=== PATIENT | male | born 1935 | race Caucasian/White ===

== ENCOUNTER 2019-10-25 01:16 | Emergency (ER) | payer MEDICARE ==
[2019-10-25 01:54] LABS: Absolute Neutrophil Ct (ANC) 7.34 (1.4-6.9); BASOPHIL % 0.2 % (0.0-0.4); Basophil (Absolute #) 0.02 (0-0.4); Eosinophil % 1.8 % (0.00-5.0); Eosinophil (Absolute #) 0.16 (0-0.5); Hematocrit 42.3 % (42-50); Hemoglobin 13.7 gm/dl (12.5-18.0); Lymphocytes % 11.1 % (24.0-44.0); Mean Cell Volume 91.2 fl (78-100); Mean Corpuscular Hemoglobin 29.5 pg (26-32); Mean Corpuscular Hgb Concent. 32.4 g/dl (32-36); Mean Platelet Volume 10.6 fl (7.5-11.0); Monocyte (Absolute #) 0.48 (0.0-1.3); Monocytes % 5.3 % (0.0-12.0); Neutrophil % 81.6 % (36.0-66.0); Platelet Count 192 K/mm3 (150-450); Red Blood Count 4.64 M/mm3 (4.1-5.6); Red Cell Distribution Width 15.8 % (11.5-14.0)
--- NOTE | 2019-10-25 01:57 | ERPHSYRPT ---
- History of Present Illness Time Seen by Provider: 10/25/19 01:26 Source: patient, EMS Exam Limitations: no limitations Patient Subjective Stated Complaint: Ambulance called to resident's home R/T unresponsive. EMT found patient's BS to be 29. 1 amp of D5 administered and patient BS increased and patient become alert according to EMT. Upon arrival to ER patient's BS 132. Triage Nursing Assessment: . Physician History: Patient is an 84-year-old male who presents to our ED via EMS for evaluation and treatment of syncope, unresponsiveness and hypoglycemia. EMS reports that patient was unresponsive upon their arrival. Accu-Chek revealed glucose of 29. An amp of D50 was administered. Patient became responsive. He was then given peanut butter and orange juice shortly thereafter. Approximately 30 minutes after D50 administration, patient arrived to our ED and his sugar was 132. Patient admits to a history of hypoglycemia. Patient's administers his insulin. She reports that patient has been eating well all day today. No fever. Patient has no chest pain or shortness of breath. No infections that they are aware of. Patient feels well at this time. Family at bedside. They voiced no other complaints concerns at this time. 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 Allergies/Adverse Reactions: No Known Drug Allergies Allergy (Unverified 10/25/19 04:28) Home Medications: Unobtainable 10/25/19 [History] Hx Tetanus, Diphtheria Vaccination/Date Given: Yes Hx Influenza Vaccination/Date Given: Yes Hx Pneumococcal Vaccination/Date Given: Yes Immunizations Up to Date: Yes - Past Medical History Pertinent Past Medical History: Yes Neurological History: Migraines, Stroke ENT History: No Pertinent History Cardiac History: Hypertension Respiratory History: No Pertinent History Endocrine Medical History: Diabetes Type II, Hypoglycemia Musculoskeletal History: Arthritis, Osteoarthritis GI Medical History: No Pertinent History History: No Pertinent History Psycho-Social History: No Pertinent History Male Reproductive Disorders: No Pertinent History - Past Surgical History Past Surgical History: Yes Neuro Surgical History: No Pertinent History Cardiac: No Pertinent History Respiratory: No Pertinent History Gastrointestinal: No Pertinent History Genitourinary: No Pertinent History Musculoskeletal: No Pertinent History Male Surgical History: No Pertinent History Other Surgical History: Back Surgery, neck surgery, Right toes amputated - Social History Smoking Status: Former smoker Exposure to second hand smoke: No Drug Use: none Patient Lives Alone: No - Review of Systems Constitutional: No Symptoms, No Fever, No Chills Eyes: No Symptoms Ears, Nose, & Throat: No Symptoms Respiratory: No Symptoms, No Cough, No Dyspnea Cardiac: No Symptoms, No Chest Pain, No Edema, No Syncope Abdominal/Gastrointestinal: No Symptoms, No Abdominal Pain, No Nausea, No Vomiting, No Diarrhea Genitourinary Symptoms: No Symptoms, No Dysuria Musculoskeletal: No Symptoms, No Back Pain, No Neck Pain Skin: No Symptoms, No Rash Neurological: No Dizziness, No Focal Weakness, No Seizure, No Sensory Changes Psychological: No Symptoms Endocrine: No Symptoms All Other Systems: Reviewed and Negative Physical Exam - Nursing Vital Signs Nursing Vital Signs: Initial Vital Signs Temperature 96.8 F 10/25/19 01:19 Pulse Rate 77 10/25/19 01:19 Respiratory Rate 20 10/25/19 01:19 Blood Pressure 143/70 10/25/19 01:19 O2 Sat by Pulse Oximetry 97 10/25/19 01:19 Pain Scale Pain Intensity 0 - Kiarra Coma Scale Best Eye Response ([place]): (4) open spontaneously Best Verbal Response ([place]): (5) oriented Best Motor Response ([place]): (6) obeys commands [place] Total: 15 - Physical Exam General Appearance: no apparent distress, alert Eye Exam: bilateral eye: PERRL, EOMI Ears, Nose, Throat Exam: normal ENT inspection, pharynx normal, moist mucous membranes Neck Exam: normal inspection, non-tender, supple, full range of motion Respiratory: normal breath sounds, lungs clear, No chest tenderness, No respiratory distress Cardiovascular: regular rate/rhythm, capillary refill <2 sec, No murmur, No pulse deficit Gastrointestinal: soft, No tenderness, No distention, No mass Back Exam: normal inspection, normal range of motion, No CVA tenderness, No vertebral tenderness Extremity Exam: normal inspection, normal range of motion, pelvis stable, No tenderness Peripheral Pulses: dorsalis-pedis (R): 1+, dorsalis-pedis (L): 2+ Mental Status: alert, oriented x 3, 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 The foot is cooler to touch as compared to the left. No cellulitis observed. No open or draining lesions observed.) Skin Exam: normal color, warm, dry, No rash SpO2: 97 - Course EKG Interpreted by Me: RATE, Sinus Rhythm, NORMAL AXIS, NORMAL INTERVALS - Radiology Exams Chest X-ray Interpretation: Teleradiologist Report (Widespread airspace disease with relative right lower lung sparing. This could represent infection or pulmonary edema in the appropriate clinical setting) Ordered Tests: Active Orders 24 hr Category Date Time Status Accucheck STAT Care 10/25/19 04:24 Active Edge Cutting Machine Operator STAT Care 10/25/19 01:47 Active EKG-ER Only STAT Care 10/25/19 01:44 Active IV Insertion STAT Care 10/25/19 01:44 Active Pulse Oximetry (ED) STAT Care 10/25/19 01:44 Active CHEST 1 VIEW (PORTABLE) Stat Exams 10/25/19 02:00 Taken CBC W DIFF Stat Lab 10/25/19 01:30 Completed CMP Stat Lab 10/25/19 01:30 Completed TROPONIN Q3H Lab 10/25/19 01:30 Completed TROPONIN Q3H Lab 10/25/19 03:53 Completed TROPONIN Q3H Lab 10/25/19 08:00 Ordered TROPONIN Q3H Lab 10/25/19 11:00 Ordered TROPONIN Q3H Lab 10/25/19 14:00 Ordered UA W/RFX UR CULTURE Stat Lab 10/25/19 02:38 Completed Urine Triage Profile Stat Lab 10/25/19 02:38 Completed Lab/Rad Data: Laboratory Result Diagrams 10/25/19 01:30 10/25/19 01:30 Laboratory Results 10/25/19 10/25/19 10/25/19 Range/Units 03:53 02:38 02:38 WBC (4.0-10.5) K/mm3 RBC (4.1-5.6) M/mm3 Hgb (12.5-18.0) gm/dl Hct (42-50) % MCV (78-100) fl MCH (26-32) pg MCHC (32-36) g/dl RDW (11.5-14.0) % Plt Count (150-450) K/mm3 MPV (7.5-11.0) fl Gran % (36.0-66.0) % Eos # (Auto) (0-0.5) Absolute Lymphs (auto) (1.0-4.6) Absolute Monos (auto) (0.0-1.3) Lymphocytes % (24.0-44.0) % Monocytes % (0.0-12.0) % Eosinophils % (0.00-5.0) % Basophils % (0.0-0.4) % Absolute Granulocytes (1.4-6.9) Basophils # (0-0.4) Sodium (137-145) mmol/L Potassium (3.5-5.1) mmol/L Chloride (98-107) mmol/L Carbon Dioxide (22-30) mmol/L Anion Gap (5-15) MEQ/L BUN (9-20) mg/dL Creatinine (0.66-1.25) mg/dL Estimated GFR ML/MIN Glucose (74-106) mg/dL Calcium (8.4-10.2) mg/dL Total Bilirubin (0.2-1.3) mg/dL AST (17-59) U/L ALT (0-50) U/L Alkaline Phosphatase (38-126) U/L Troponin I < 0.012 (0.000-0.034) ng/mL Serum Total Protein (6.3-8.2) g/dL Albumin (3.5-5.0) g/dL Urine Color YELLOW (YELLOW) Urine Appearance CLEAR (CLEAR) Urine pH 5.0 (5-6) Ur Specific [place] 1.012 (1.005-1.025) Urine Protein NEGATIVE (Negative) Urine Ketones NEGATIVE (NEGATIVE) Urine Blood NEGATIVE (0-5) Renato/ul Urine Nitrite NEGATIVE (NEGATIVE) Urine Bilirubin NEGATIVE (NEGATIVE) Urine Urobilinogen NEGATIVE (0-1) mg/dL Ur Leukocyte Esterase NEGATIVE (NEGATIVE) Urine WBC (Auto) NONE (0-5) /HPF Urine RBC (Auto) NONE (0-2) /HPF U Hyaline Cast (Auto) 3-5 (0-2) /LPF U Epithel Cells (Auto) NONE (FEW) /HPF Urine Bacteria (Auto) NONE (NEGATIVE) /HPF Urine Mucus (Auto) SLIGHT (NEGATIVE) /HPF Urine Culture Reflexed NO (NO) Urine Glucose NEGATIVE (NEGATIVE) mg/dL Urine Opiates Level NEGATIVE (NEGATIVE) Ur Methadone NEGATIVE (NEGATIVE) Urine Barbiturates NEGATIVE (NEGATIVE) Ur Phencyclidine (PCP) NEGATIVE (NEGATIVE) Urine Amphetamine NEGATIVE (NEGATIVE) U Benzodiazepine Level NEGATIVE (NEGATIVE) Urine Cocaine NEGATIVE (NEGATIVE) Urine Marijuana (THC) NEGATIVE (NEGATIVE) 10/25/19 10/25/19 10/25/19 Range/Units 01:30 01:30 01:30 WBC 9.0 (4.0-10.5) K/mm3 RBC 4.64 (4.1-5.6) M/mm3 Hgb 13.7 (12.5-18.0) gm/dl Hct 42.3 (42-50) % MCV 91.2 (78-100) fl MCH 29.5 (26-32) pg MCHC 32.4 (32-36) g/dl RDW 15.8 H (11.5-14.0) % Plt Count 192 (150-450) K/mm3 MPV 10.6 (7.5-11.0) fl Gran % 81.6 H (36.0-66.0) % Eos # (Auto) 0.16 (0-0.5) Absolute Lymphs (auto) 1.00 (1.0-4.6) Absolute Monos (auto) 0.48 (0.0-1.3) Lymphocytes % 11.1 L (24.0-44.0) % Monocytes % 5.3 (0.0-12.0) % Eosinophils % 1.8 (0.00-5.0) % Basophils % 0.2 (0.0-0.4) % Absolute Granulocytes 7.34 H (1.4-6.9) Basophils # 0.02 (0-0.4) Sodium 133 L (137-145) mmol/L Potassium 3.9 (3.5-5.1) mmol/L Chloride 100 (98-107) mmol/L Carbon Dioxide 24 (22-30) mmol/L Anion Gap 12.6 (5-15) MEQ/L BUN 23 H (9-20) mg/dL Creatinine 1.38 H (0.66-1.25) mg/dL Estimated GFR 52.0 ML/MIN Glucose 127 H (74-106) mg/dL Calcium 9.0 (8.4-10.2) mg/dL Total Bilirubin 0.40 (0.2-1.3) mg/dL AST 29 (17-59) U/L ALT 15 (0-50) U/L Alkaline Phosphatase 101 (38-126) U/L Troponin I < 0.012 (0.000-0.034) ng/mL Serum Total Protein 8.2 (6.3-8.2) g/dL Albumin 4.0 (3.5-5.0) g/dL Urine Color (YELLOW) Urine Appearance (CLEAR) Urine pH (5-6) Ur Specific [place] (1.005-1.025) Urine Protein (Negative) Urine Ketones (NEGATIVE) Urine Blood (0-5) Renato/ul Urine Nitrite (NEGATIVE) Urine Bilirubin (NEGATIVE) Urine Urobilinogen (0-1) mg/dL Ur Leukocyte Esterase (NEGATIVE) Urine WBC (Auto) (0-5) /HPF Urine RBC (Auto) (0-2) /HPF U Hyaline Cast (Auto) (0-2) /LPF U Epithel Cells (Auto) (FEW) /HPF Urine Bacteria (Auto) (NEGATIVE) /HPF Urine Mucus (Auto) (NEGATIVE) /HPF Urine Culture Reflexed (NO) Urine Glucose (NEGATIVE) mg/dL Urine Opiates Level (NEGATIVE) Ur Methadone (NEGATIVE) Urine Barbiturates (NEGATIVE) Ur Phencyclidine (PCP) (NEGATIVE) Urine Amphetamine (NEGATIVE) U Benzodiazepine Level (NEGATIVE) Urine Cocaine (NEGATIVE) Urine Marijuana (THC) (NEGATIVE) - Progress Progress: improved, re-examined Progress Note: 10/25/19 04:46 Patient reassessed. He is well. Repeat neuro exam WNL. Patient is mentating at his baseline. Negative troponin x2. Blood sugar stable at 132 on 113. Case discussed with patient's primary care physician Dr. Wallis who advises discontinuing NovoLog and discontinuing the second dose of Levemir daily. Patient's new regimen will be 80 units of Levemir once daily. Patient's primary care doctor will see patient on Monday for reevaluation. Patient's advised and agrees to check patient's blood sugar level every 3 hours to assess trends for possible hypoglycemia. She will administer glucose accordingly and call 911 if patient becomes symptomatic or trends downward. Patient's is reliable to follow through with outpatient monitoring and plan of care. 10/25/19 05:40 Rad report shows widespread airspace disease with relative right lower lung sparing which could represent infection or pulmonary edema in the appropriate setting. NO relavant prior studies. Patient is afebrile. No tachypnea. No tachycardia no hypoxia. NO leukocytosis. Normal pulse oximetry. No JVD no lower extremity pitting edema patient has no shortness of breath or chest pain. Negative troponin x 2 10/25/19 05:48 In light lack of clinical and lab findings to support infection and CHF we will hold off on antibiotic therapy and treatment for CHF. instructed to monitor patient at home and patient will have early follow up with Dr. Wallis Discussed with Dr.: Brittney Will see patient in: office (Dr. Wallis will see patient on Monday to reassess and adjust long-term administration of diabetic medications.) Counseled pt/family regarding: lab results, diagnosis, need for follow-up, rad results - Departure Departure Disposition: Home Clinical Impression: Hypoglycemia Condition: Good Critical Care Time: No Referrals: SALINA WALLIS MD [Primary Care Provider] - Instructions: Low Blood Sugar, Adult (DC), Low Blood Sugar in People With Diabetes Additional Instructions: Please give Levemir 80 units once daily only. Discontinue NovoLog as well as the second dose of Levemir. Please recheck blood sugar every 3-4 hours to assess for recurrent hypoglycemia. If symptomatic or any issues or concerns regarding blood sugar call 911 Discharge/Care Plan KRISTIE GARCIA was seen on 10/25/19 in the Emergency Room. The patient was counseled regarding Diagnosis,Lab results, Imaging studies, need for follow up and when to return to the Emergency Room. Prescriptions given: Discharge Note I have spoken with the patient and/or caregivers. I have explained the patient' s condition, diagnosis and treatment plan based on the information available to me at this time. I have answered the patient's and/or caregiver's questions and addressed any concerns. The patient and/or caregivers have as good understanding of the patient's diagnosis, condition and treatment plan as can be expected at this point. The vital signs have been stable. The patient's condition is stable and appropriate for discharge from the emergency department. The patient will pursue further outpatient evaluation with the primary care physician or other designated or consulting physician as outlined in the discharge instructions. The patient and/or caregivers are agreeable to this plan of care and follow-up instructions have been explained in detail. The patient and/or caregivers have received these instruction. The patient/and or caregivers are aware that any significant change in condition or worsening of symptoms should prompt an immediate return to this or the closest emergency department or call 911.
[2019-10-25 01:59] LABS: ANION GAP 12.6 MEQ/L (5-15); BILIRUBIN,TOTAL 0.4 mg/dL (0.2-1.3); Creatinine 1 1.38 mg/dL (0.66-1.25); Potassium 3.9 mmol/L (3.5-5.1); Total Protein 8.2 g/dL (6.3-8.2)
[2019-10-25 02:52] LABS: Appearance CLEAR (CLEAR); Bilirubin NEGATIVE (NEGATIVE); Blood NEGATIVE Ery/ul (0-5); Glucose NEGATIVE (NEGATIVE); Ketones NEGATIVE (NEGATIVE); Leukocyte Esterase NEGATIVE (NEGATIVE); Mucus SLIGHT /HPF (NEGATIVE); Nitrite NEGATIVE (NEGATIVE); Protein,Urine Dip NEGATIVE (Negative); Specific Gravity 1.012 (1.005-1.025); Urobilinogen NEGATIVE mg/dL (0-1)
[2019-10-25 02:57] LABS: Amphetamine,Urine NEGATIVE (NEGATIVE); Barbiturate,Urine NEGATIVE (NEGATIVE); Benzodiazepine,Urine NEGATIVE (NEGATIVE); Cocaine,Urine NEGATIVE (NEGATIVE); Methadone,Urine NEGATIVE (NEGATIVE); Opiate,Urine NEGATIVE (NEGATIVE); PCP,Urine NEGATIVE (NEGATIVE); THC,Urine NEGATIVE (NEGATIVE)
[2019-10-25 05:16] VITALS: BP 153/86; PULSE 84
[2019-10-25 05:27] VITALS: O2SAT 97
--- NOTE | 2019-10-25 08:40 | XRAY ---
Indication: Cough. Comparison: None Portable chest underinflated accentuating the cardiopulmonary structures. There is mild diffuse interstitial alveolar opacities bilaterally with tiny bibasilar effusions and cardiomegaly. Bony thorax intact with osteopenia and degenerative changes. Incidental right carotid endarterectomy and right Port-A-Cath. Impression: Cardiomegaly with diffuse bilateral interstitial alveolar opacities and tiny effusions. Rule out cardiac decompensation. Superimposed pneumonia not completely excluded. Comment: Preliminary interpretation was made by [facility]. No critical discrepancy.
== END 2019-10-25 05:16 | disposition home or self-care (01) ==
LOC: ED 01:16
DX: E16.2 Hypoglycemia, unspecified (principal); I10 Essential (primary) hypertension; E11.9 Type 2 diabetes mellitus without complications
CPT/HCPCS: 36000; 36415; 71045; 80053; 80307; 81001; 82962; 84484; 85025; 93005; 93041; 94760; 99284

== ENCOUNTER 2020-05-04 15:10 | Emergency (ER) | payer MEDICARE ==
[2020-05-04] MEDS ORDERED: Sodium Chloride 0.9% 1000 ML 1,000 ML IV STA (15:32)
[2020-05-04 15:45] LABS: BASOPHIL % 0.3 % (0.0-0.4); Basophil (Absolute #) 0.03 (0-0.4); Eosinophil % 4.6 % (0.00-5.0); Hematocrit 46.5 % (42-50); Lymphocyte (Absolute #) 1.62 (1.0-4.6); Lymphocytes % 18.5 % (24.0-44.0); Mean Cell Volume 91.4 fl (78-100); Mean Corpuscular Hemoglobin 29.5 pg (26-32); Mean Corpuscular Hgb Concent. 32.3 g/dl (32-36); Mean Platelet Volume 10.6 fl (7.5-11.0); Monocyte (Absolute #) 0.61 (0.0-1.3); Neutrophil % 69.6 % (36.0-66.0); Platelet Count 206 K/mm3 (150-450); Red Blood Count 5.09 M/mm3 (4.1-5.6); Red Cell Distribution Width 15.7 % (11.5-14.0); White Blood Count 8.8 K/mm3 (4.0-10.5)
[2020-05-04 15:53] LABS: ALBUMIN 3.9 g/dL (3.5-5.0); ALKALINE PHOSPHATASE 86 U/L (38-126); ANION GAP 12.7 MEQ/L (5-15); BLOOD UREA NITROGEN 13 mg/dL (9-20); CHLORIDE 95 mmol/L (98-107); Calcium 9.1 mg/dL (8.4-10.2); Carbon Dioxide 28 mmol/L (22-30); Creatinine 1 1.04 mg/dL (0.66-1.25); EST GLOMERULAR FILTRATION RATE > 60.0 ML/MIN; Glucose 107 mg/dL (74-106); Potassium 3.7 mmol/L (3.5-5.1); SGOT/AST 34 U/L (17-59); SGPT/ALT 15 U/L (0-50); SODIUM 132 mmol/L (137-145); Total Protein 7.6 g/dL (6.3-8.2)
[2020-05-04 16:14] VITALS: O2SAT 92
--- NOTE | 2020-05-04 16:19 | XRAY ---
Indication: Seizure. Multiple contiguous axial images obtained through the head without contrast. Comparison: None Age appropriate global atrophy, moderate periventricular degenerative micro-ischemia bilaterally, and small focus old left frontal lobe infarct. No acute intra-cranial hemorrhage, abnormal extra-axial fluid collection, or mass effect. Fourth ventricle is midline without hydrocephalus. Bony calvarium intact. Visualized paranasal sinuses and mastoid air cells are clear. 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
--- NOTE | 2020-05-04 16:23 | XRAY ---
Indication: Seizure. Comparison: October 25, 2019. Portable chest continues to be underinflated again with diffuse bilateral interstitial alveolar opacities, borderline cardiomegaly, right Port-A-Cath, osteopenia, bony degenerative changes, and carotid endarterectomy. No new cardiopulmonary abnormalities.
[2020-05-04 16:26] LABS: Appearance CLEAR (CLEAR); Bilirubin NEGATIVE (NEGATIVE); Blood NEGATIVE Ery/ul (0-5); Glucose NEGATIVE (NEGATIVE); Ketones NEGATIVE (NEGATIVE); Leukocyte Esterase NEGATIVE (NEGATIVE); Mucus SLIGHT /HPF (NEGATIVE); Nitrite NEGATIVE (NEGATIVE); Protein,Urine Dip NEGATIVE (Negative); Specific Gravity 1.009 (1.005-1.025); Urobilinogen NEGATIVE mg/dL (0-1)
[2020-05-04] MEDS ORDERED: Sodium Chloride 0.9% 1000 ML 1,000 ML ONE (16:35)
--- NOTE | 2020-05-04 17:15 | ERPHSYRPT ---
- History of Present Illness Time Seen by Provider: 05/04/20 15:30 Source: family, EMS Exam Limitations: clinical condition Patient Subjective Stated Complaint: PT HERE FOR A SEIZURE AT HOME TODAY THAT WAS WITNESSED, HE'S LAST SEIZURE WAS A MONTH AGO, Triage Nursing Assessment: PT ALERT, BUT CONFUSED, ARRIVED PER AMBULANCE, FACE MASK IN PLACE, RESP EASY, SKIN W/D/P. EDEMA AND REDDNESS TO LOWER LEGS,ABD SOFT Physician History: Is an 84-year-old male who presents with seizure activity at home witnessed by his . His last seizure was 1 month ago and that was his first recorded seizure. He has severe dementia and hospitalized at [facility] a month ago with his initial seizure it was thought to be secondary to hyponatremia. Arrival he is alert but confused he is an insulin-dependent diabetic. Timing/Duration: today Baseline/Normal Cognition: alert but confused Current Cognition: alert but confused Associated Symptoms: confusion, loss of consciousness, seizures Allergies/Adverse Reactions: No Known Drug Allergies Allergy (Verified 05/04/20 15:24) Home Medications: Cefdinir [Omnicef 300 mg] 1 ea DAILY 05/04/20 [History] Clopidogrel Bisulfate [Clopidogrel] 1 ea DAILY 05/04/20 [History] Donepezil HCl 1 ea DAILY 05/04/20 [History] Donepezil HCl 10 mg [Aricept 10 MG] 10 mg PO HS 05/04/20 [History] Doxycycline Hyclate 1 ea BID 05/04/20 [History] Furosemide 20 mg [Lasix 20 mg] 1 ea DAILY 05/04/20 [History] LORazepam [Lorazepam] 1 ea DAILY 05/04/20 [History] Metoprolol Succinate 1 ea DAILY 05/04/20 [History] Ramipril [Altace] 1 ea DAILY 05/04/20 [History] Ranolazine [Ranolazine ER] 1 ea DAILY 05/04/20 [History] Hx Tetanus, Diphtheria Vaccination/Date Given: Yes Hx Influenza Vaccination/Date Given: Yes Hx Pneumococcal Vaccination/Date Given: Yes Immunizations Up to Date: Yes Travel Risk - International Travel Have you traveled outside of the country in past 3 weeks: No - Coronavirus Screening Are you exhibiting any of the following symptoms?: No Close contact with a COVID-19 positive Pt in past 14-21 Days: No - Review of Systems All Other Systems: Unable due to condition - Past Medical History Pertinent Past Medical History: Yes Neurological History: Migraines, Stroke ENT History: No Pertinent History Cardiac History: Hypertension Respiratory History: No Pertinent History Endocrine Medical History: Diabetes Type II, Hypoglycemia Musculoskeletal History: Arthritis, Osteoarthritis GI Medical History: No Pertinent History History: No Pertinent History Psycho-Social History: No Pertinent History Male Reproductive Disorders: No Pertinent History - Past Surgical History Past Surgical History: Yes Neuro Surgical History: No Pertinent History Cardiac: No Pertinent History Respiratory: No Pertinent History Gastrointestinal: No Pertinent History Genitourinary: No Pertinent History Musculoskeletal: No Pertinent History Male Surgical History: No Pertinent History Other Surgical History: Back Surgery, neck surgery, Right toes amputated - Social History Smoking Status: Former smoker Exposure to second hand smoke: No Drug Use: none Patient Lives Alone: No - Nursing Vital Signs Nursing Vital Signs: Initial Vital Signs Temperature 97.7 F 05/04/20 15:15 Pulse Rate 77 05/04/20 15:15 Respiratory Rate 20 05/04/20 15:15 Blood Pressure 145/83 05/04/20 15:15 O2 Sat by Pulse Oximetry 94 L 05/04/20 15:15 Pain Scale Pain Intensity 0 - Kiarra Coma Scale Best Eye Response ([place]): (4) open spontaneously Best Verbal Response (Kiarra): (4) confused conversation Best Motor Response ([place]): (6) obeys commands Kiarra Total: 14 - Physical Exam General Appearance: mild distress Eye Exam: bilateral eye: normal inspection, PERRL, EOMI Ears, Nose, Throat Exam: normal ENT inspection, moist mucous membranes Neck Exam: normal inspection, non-tender, supple Respiratory: normal breath sounds, lungs clear, airway intact, No respiratory distress Cardiovascular: regular rate/rhythm, No edema Gastrointestinal: soft, No tenderness, No distention Back Exam: normal inspection Extremity Exam: pedal edema Peripheral Pulses: carotid (R): 2+, carotid (L): 2+ Mental Status: alert, disoriented to person, disoriented to place, 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 Exam: tongue midline, No facial droop, No facial paresthesias, No facial weakness Motor/Sensory: no motor deficit Skin Exam: normal color, warm, dry SpO2 Interpretation: normal SpO2: 92 O2 Delivery: Room Air - Course Nursing assessment & vital signs reviewed: Yes EKG Interpreted by Me: RATE (73), NORMAL AXIS, NORMAL INTERVALS, Right Bundle Branch Block, Non-specific ST Changes - Radiology Exams Chest X-ray Interpretation: Reviewed by me, Other (No acute findings on chest x-ray) - CT Exams Head CT Interpretation: Other (No acute findings on CT scan of the head) Ordered Tests: Active Orders 24 hr Category Date Time Status EKG-ER Only STAT Care 05/04/20 15:37 Active CHEST 1 VIEW (PORTABLE) Stat Exams 05/04/20 15:34 Completed HEAD WITHOUT CONTRAST [CT] Stat Exams 05/04/20 15:34 Completed CBC W DIFF Stat Lab 05/04/20 15:28 Completed CMP Stat Lab 05/04/20 15:28 Completed Lactic Acid Stat Lab 05/04/20 15:32 Completed TROPONIN Q3H Lab 05/04/20 15:28 Completed TROPONIN Q3H Lab 05/04/20 18:45 Ordered TROPONIN Q3H Lab 05/04/20 21:45 Ordered UA W/RFX UR CULTURE Stat Lab 05/04/20 16:13 Completed Medication Summary Discontinued Medications Generic Name Dose Route Start Last Admin Trade Name Freq PRN Reason Stop Dose Admin Sodium Chloride 1,000 mls @ 999 mls/hr 05/04/20 15:32 05/04/20 16:36 Sodium Chloride 0.9% 1000 Ml IV 05/04/20 16:32 999 mls/hr .Q1H1M STA Administration Sodium Chloride Confirm 05/04/20 16:35 Sodium Chloride 0.9% 1000 Ml Administered 05/04/20 16:36 Dose 1,000 mls @ ud .ROUTE .STK-MED ONE Lab/Rad Data: Laboratory Result Diagrams 05/04/20 15:28 05/04/20 15:28 Laboratory Results 05/04/20 05/04/20 05/04/20 Range/Units 16:13 15:32 15:28 WBC (4.0-10.5) K/mm3 RBC (4.1-5.6) M/mm3 Hgb (12.5-18.0) gm/dl Hct (42-50) % MCV (78-100) fl MCH (26-32) pg MCHC (32-36) g/dl RDW (11.5-14.0) % Plt Count (150-450) K/mm3 MPV (7.5-11.0) fl Gran % (36.0-66.0) % Eos # (Auto) (0-0.5) Absolute Lymphs (auto) (1.0-4.6) Absolute Monos (auto) (0.0-1.3) Lymphocytes % (24.0-44.0) % Monocytes % (0.0-12.0) % Eosinophils % (0.00-5.0) % Basophils % (0.0-0.4) % Absolute Granulocytes (1.4-6.9) Basophils # (0-0.4) Sodium (137-145) mmol/L Potassium (3.5-5.1) mmol/L Chloride (98-107) mmol/L Carbon Dioxide (22-30) mmol/L Anion Gap (5-15) MEQ/L BUN (9-20) mg/dL Creatinine (0.66-1.25) mg/dL Estimated GFR ML/MIN Glucose (74-106) mg/dL Lactic Acid 1.2 (0.4-2.0) Calcium (8.4-10.2) mg/dL Total Bilirubin (0.2-1.3) mg/dL AST (17-59) U/L ALT (0-50) U/L Alkaline Phosphatase (38-126) U/L Troponin I < 0.012 (0.000-0.034) ng/mL Serum Total Protein (6.3-8.2) g/dL Albumin (3.5-5.0) g/dL Urine Color YELLOW (YELLOW) Urine Appearance CLEAR (CLEAR) Urine pH 5.0 (5-6) Ur Specific [place] 1.009 (1.005-1.025) Urine Protein NEGATIVE (Negative) Urine Ketones NEGATIVE (NEGATIVE) Urine Blood NEGATIVE (0-5) Renato/ul Urine Nitrite NEGATIVE (NEGATIVE) Urine Bilirubin NEGATIVE (NEGATIVE) Urine Urobilinogen NEGATIVE (0-1) mg/dL Ur Leukocyte Esterase NEGATIVE (NEGATIVE) Urine WBC (Auto) NONE (0-5) /HPF Urine RBC (Auto) NONE (0-2) /HPF U Epithel Cells (Auto) NONE (FEW) /HPF Urine Bacteria (Auto) NONE (NEGATIVE) /HPF Urine Mucus (Auto) SLIGHT (NEGATIVE) /HPF Urine Culture Reflexed NO (NO) Urine Glucose NEGATIVE (NEGATIVE) mg/dL 05/04/20 05/04/20 Range/Units 15:28 15:28 WBC 8.8 (4.0-10.5) K/mm3 RBC 5.09 (4.1-5.6) M/mm3 Hgb 15.0 (12.5-18.0) gm/dl Hct 46.5 (42-50) % MCV 91.4 (78-100) fl MCH 29.5 (26-32) pg MCHC 32.3 (32-36) g/dl RDW 15.7 H (11.5-14.0) % Plt Count 206 (150-450) K/mm3 MPV 10.6 (7.5-11.0) fl Gran % 69.6 H (36.0-66.0) % Eos # (Auto) 0.40 (0-0.5) Absolute Lymphs (auto) 1.62 (1.0-4.6) Absolute Monos (auto) 0.61 (0.0-1.3) Lymphocytes % 18.5 L (24.0-44.0) % Monocytes % 7.0 (0.0-12.0) % Eosinophils % 4.6 (0.00-5.0) % Basophils % 0.3 (0.0-0.4) % Absolute Granulocytes 6.10 (1.4-6.9) Basophils # 0.03 (0-0.4) Sodium 132 L (137-145) mmol/L Potassium 3.7 (3.5-5.1) mmol/L Chloride 95 L (98-107) mmol/L Carbon Dioxide 28 (22-30) mmol/L Anion Gap 12.7 (5-15) MEQ/L BUN 13 (9-20) mg/dL Creatinine 1.04 (0.66-1.25) mg/dL Estimated GFR > 60.0 ML/MIN Glucose 107 H (74-106) mg/dL Lactic Acid (0.4-2.0) Calcium 9.1 (8.4-10.2) mg/dL Total Bilirubin 0.80 (0.2-1.3) mg/dL AST 34 (17-59) U/L ALT 15 (0-50) U/L Alkaline Phosphatase 86 (38-126) U/L Troponin I (0.000-0.034) ng/mL Serum Total Protein 7.6 (6.3-8.2) g/dL Albumin 3.9 (3.5-5.0) g/dL Urine Color (YELLOW) Urine Appearance (CLEAR) Urine pH (5-6) Ur Specific [place] (1.005-1.025) Urine Protein (Negative) Urine Ketones (NEGATIVE) Urine Blood (0-5) Renato/ul Urine Nitrite (NEGATIVE) Urine Bilirubin (NEGATIVE) Urine Urobilinogen (0-1) mg/dL Ur Leukocyte Esterase (NEGATIVE) Urine WBC (Auto) (0-5) /HPF Urine RBC (Auto) (0-2) /HPF U Epithel Cells (Auto) (FEW) /HPF Urine Bacteria (Auto) (NEGATIVE) /HPF Urine Mucus (Auto) (NEGATIVE) /HPF Urine Culture Reflexed (NO) Urine Glucose (NEGATIVE) mg/dL - Progress Progress: improved Progress Note: 05/04/20 17:16 Cussed the case with Dr. Romero who said with a negative work-up he can be discharged home he will see him tomorrow he does not want to admit him because that makes his confusion much worse. Discussed with : Brittney - Departure Departure Disposition: Home Clinical Impression: Seizure Condition: Stable Critical Care Time: No Referrals: SALINA WALLIS MD [Primary Care Provider] - Instructions: Seizures, Adult (DC)
[2020-05-04 18:06] VITALS: BP 169/97; PULSE 78
== END 2020-05-04 18:06 | disposition home or self-care (01) ==
LOC: ED 15:10
DX: G40.909 Epilepsy, unspecified, not intractable, without status epilepticus (principal); R41.0 Disorientation, unspecified; F03.90 Unspecified dementia, unspecified severity, without behavioral disturbance, psychotic disturbance, mood disturbance, and anxiety; Z79.899 Other long term (current) drug therapy; E11.649 Type 2 diabetes mellitus with hypoglycemia without coma; I10 Essential (primary) hypertension
CPT/HCPCS: 36000; 36415; 70450; 71045; 80053; 81001; 83605; 84146; 84484; 85025; 93005; 96360; 99285; P9612

== ENCOUNTER 2021-04-28 07:21 | Observation (INO) | payer MEDICARE ==
[2021-04-28] MEDS ORDERED: Sodium Chloride 0.9% 1000 ML 1,000 ML IV STA (07:36)
--- NOTE | 2021-04-28 07:44 | ERPHSYRPT ---
- History of Present Illness Time Seen by Provider: 04/28/21 07:40 Source: patient Exam Limitations: no limitations Patient Subjective Stated Complaint: Patient at home not responding normally to . Patient has had diarrhea since march which he was hospitalized at [facility]. Patients BP was 134/180, pulse 05, oxygen saturation 96% on 3L in EMS. Triage Nursing Assessment: Patient to ED with confusion and not responding normally. Patient not verbally responding to questioning but nodding head yes and no. 3L oxygen normally at home. Redness present on bottom. No toes present on R foot. Poor historian due to confusion. States yes to feeling weak and no to stomach pain. Physician History: Patient is a 85-year-old male presents to our ED via EMS for evaluation of altered mental status. reports the patient was unresponsive this morning. Patient reportedly has been experiencing ongoing diarrhea since March. attributes his altered mental status to his diarrhea. Patient is a known diabetic. History of toe amputation right lower extremity. Patient is a poor historian therefore this HPI is limited. Patient is responsive to verbal and tactile stimulation. No signs of trauma. Symptoms are moderate in intensity. No specific worsening improving factors. Accu-Chek via EMS was 141. Vitals are stable. Patient afebrile. No signs of trauma. EMS administered 500 cc bolus normal saline prior to arrival. Timing/Duration: today Severity: moderate Modifying Factors: Improves With: nothing Associated Symptoms: denies symptoms Allergies/Adverse Reactions: No Known Drug Allergies Allergy (Verified 05/04/20 15:24) Home Medications: Donepezil HCl 1 tablet PO HS 05/04/20 [History] Furosemide 20 mg [Lasix 20 mg] 1 ea DAILY 05/04/20 [History] Metoprolol Succinate 1 ea BID 05/04/20 [History] Ranolazine [Ranolazine ER] 500 mg PO BID 05/04/20 [History] Aspirin 81 mg PO DAILY 04/28/21 [History] Divalproex Sodium ER 250 mg [Depakote EXTENDED RELEASE 250 MG] 125 mg PO BID 04/28/21 [History] Lovastatin 40 mg PO DAILY 04/28/21 [History] Hx Tetanus, Diphtheria Vaccination/Date Given: Yes Hx Influenza Vaccination/Date Given: Yes Hx Pneumococcal Vaccination/Date Given: Yes Travel Risk - International Travel Have you traveled outside of the country in past 3 weeks: No - Coronavirus Screening Are you exhibiting any of the following symptoms?: No - Vaccine Status Have you recieved a Covid-19 vaccination: No (unknown) Support Technician: Unknown - Vaccination Dates Dates if Unknown: unknown - Review of Systems Constitutional: No Fever, No Chills Respiratory: No Cough, No Dyspnea Cardiac: No Chest Pain, No Edema, No Syncope Abdominal/Gastrointestinal: No Abdominal Pain, No Nausea, No Vomiting, No Diarrhea Genitourinary Symptoms: No Dysuria Musculoskeletal: No Back Pain, No Neck Pain Skin: No Rash Neurological: No Dizziness, No Focal Weakness, No Sensory Changes Immunological/Allergic: No Symptoms All Other Systems: Unable due to condition - Past Medical History Pertinent Past Medical History: Yes Neurological History: Migraines, Stroke ENT History: No Pertinent History Cardiac History: Hypertension Respiratory History: No Pertinent History Endocrine Medical History: Diabetes Type II, Hypoglycemia Musculoskeletal History: Arthritis, Osteoarthritis GI Medical History: Ulcer History: No Pertinent History Psycho-Social History: No Pertinent History Male Reproductive Disorders: No Pertinent History - Past Surgical History Past Surgical History: Yes Neuro Surgical History: No Pertinent History Cardiac: No Pertinent History Respiratory: No Pertinent History Gastrointestinal: No Pertinent History Genitourinary: No Pertinent History Musculoskeletal: No Pertinent History Male Surgical History: No Pertinent History Other Surgical History: Back Surgery, neck surgery, Right toes amputated - Social History Smoking Status: Former smoker Exposure to second hand smoke: No Drug Use: none Patient Lives Alone: No - Nursing Vital Signs Nursing Vital Signs: Initial Vital Signs Temperature 96.7 F 04/28/21 07:24 Pulse Rate 92 H 04/28/21 07:24 Respiratory Rate 20 04/28/21 07:24 Blood Pressure 140/81 04/28/21 07:24 O2 Sat by Pulse Oximetry 97 04/28/21 07:24 Pain Scale Pain Intensity 0 - Physical Exam General Appearance: alert, lethargy Eye Exam: PERRL/EOMI, eyes nml inspection Ears, Nose, Throat Exam: normal ENT inspection, TMs normal, pharynx normal, dry mucous membranes Neck Exam: normal inspection, non-tender, supple, full range of motion Respiratory Exam: normal breath sounds, lungs clear, airway intact, No respiratory distress Cardiovascular Exam: regular rate/rhythm, normal heart sounds, normal peripheral pulses Gastrointestinal/Abdomen Exam: soft, normal bowel sounds, No tenderness, No mass Back Exam: normal inspection, normal range of motion, No CVA tenderness, No vertebral tenderness Extremity Exam: normal inspection, normal range of motion, pelvis stable Neurologic Exam: cooperative, normal mood/affect, sensation nml, No motor deficits, No sensory deficit, No motor weakness (Patient appears somewhat lethar gic. He is cooperative noncombative however requires multiple verbal and tactile stimuli) Skin Exam: normal color, warm, dry, No rash Lymphatic Exam: No adenopathy SpO2 Interpretation: normal SpO2: 97 O2 Delivery: Room Air - Course Nursing assessment & vital signs reviewed: Yes EKG Interpreted by Me: RATE (95), Sinus Rhythm, NORMAL AXIS, NORMAL INTERVALS, Right Bundle Branch Block - Radiology Exams Chest X-ray Interpretation: Teleradiologist Report (Underinflated chest. With mixed interstitial/alveolar opacities throughout the lung field slightly greater extent to the lower two thirds of the left lung field. This is similar to previous chest x-ray and appears chronic. Right Port-A-Cath is seen in unchanged position) - CT Exams Head CT Interpretation: Tele-radiologist Report (No acute intracranial bleed or other acute intracranial process. Moderate cerebral volume loss/atrophy and moderate to marked bilateral periventricular and subcortical chronic small vessel ischemic white matter changes. Old left frontal lobe infarct and a couple tiny lacunar infarct within the lef) Ordered Tests: Active Orders 24 hr Category Date Time Status Sap Crm Developer STAT Care 04/28/21 07:38 Active EKG-ER Only STAT Care 04/28/21 07:36 Active IV Insertion STAT Care 04/28/21 07:36 Active Pulse Oximetry (ED) STAT Care 04/28/21 07:36 Active ABDOMEN AND PELVIS W CONTRAST [CT] Stat Exams 04/28/21 09:16 Completed CHEST 1 VIEW (PORTABLE) Stat Exams 04/28/21 07:38 Completed HEAD WITHOUT CONTRAST [CT] Stat Exams 04/28/21 07:36 Completed CBC W DIFF Stat Lab 04/28/21 08:20 Completed CMP Stat Lab 04/28/21 08:20 Completed CULTURE,URINE Stat Lab 04/28/21 07:42 Received ETHYL ALCOHOL Stat Lab 04/28/21 08:20 Completed Lactic Acid Stat Lab 04/28/21 08:15 Completed MAGNESIUM Stat Lab 04/28/21 08:20 Completed POCT GLUCOSE Stat Lab 04/28/21 12:46 Completed TROPONIN Q3H Lab 04/28/21 08:20 Completed TROPONIN Q3H Lab 04/28/21 11:04 Completed TROPONIN Q3H Lab 04/28/21 13:51 Completed TROPONIN Q3H Lab 04/28/21 16:50 Received TROPONIN Q3H Lab 04/28/21 19:45 Ordered UA W/RFX UR CULTURE Stat Lab 04/28/21 07:42 Completed Urine Triage Profile Stat Lab 04/28/21 07:42 Completed Transfer Order Routine Transfer 04/28/21 Ordered Medication Summary Discontinued Medications Generic Name Dose Route Start Last Admin Trade Name Freq PRN Reason Stop Dose Admin Aspirin 324 mg 04/28/21 09:20 04/28/21 09:40 Baby Aspirin 81 Mg Chew PO 04/28/21 09:21 Not Given STAT ONE Diphenhydramine HCl 25 mg 04/28/21 10:37 04/28/21 10:39 Benadryl 50 Mg/Ml IV 04/28/21 10:38 25 mg STAT ONE Administration Diphenhydramine HCl Confirm 04/28/21 10:38 Benadryl 50 Mg/Ml Administered 04/28/21 10:39 Dose 50 mg .ROUTE .STK-MED ONE Sodium Chloride 1,000 mls @ 999 mls/hr 04/28/21 07:36 04/28/21 09:33 Sodium Chloride 0.9% 1000 Ml IV 04/28/21 08:36 Infused .Q1H1M STA Infusion Sodium Chloride Confirm 04/28/21 08:06 Sodium Chloride 0.9% 1000 Ml Administered 04/28/21 08:07 Dose 1,000 mls @ ud .ROUTE .STK-MED ONE Nitroglycerin 1 gm 04/28/21 09:20 04/28/21 09:30 Nitro-Bid 2% Ud Packets TOP 04/28/21 09:21 1 gm STAT ONE Administration Nitroglycerin Confirm 04/28/21 09:23 Nitro-Bid 2% Ud Packets Administered 04/28/21 09:24 Dose 1 gm .ROUTE .STK-MED ONE Lab/Rad Data: Laboratory Result Diagrams 04/28/21 08:20 04/28/21 08:20 Laboratory Results 04/28/21 04/28/21 04/28/21 Range/Units 15:38 13:51 12:46 WBC (4.0-10.5) K/mm3 RBC (4.1-5.6) M/mm3 Hgb (12.5-18.0) gm/dl Hct (42-50) % MCV (78-100) fl MCH (26-32) pg MCHC (32-36) g/dl RDW (11.5-14.0) % Plt Count (150-450) K/mm3 MPV (7.5-11.0) fl Gran % (36.0-66.0) % Eos # (Auto) (0-0.5) Absolute Lymphs (auto) (1.0-4.6) Absolute Monos (auto) (0.0-1.3) Lymphocytes % (24.0-44.0) % Monocytes % (0.0-12.0) % Eosinophils % (0.00-5.0) % Basophils % (0.0-0.4) % Absolute Granulocytes (1.4-6.9) Basophils # (0-0.4) Sodium (137-145) mmol/L Potassium (3.5-5.1) mmol/L Chloride (98-107) mmol/L Carbon Dioxide (22-30) mmol/L Anion Gap (5-15) MEQ/L BUN (9-20) mg/dL Creatinine (0.66-1.25) mg/dL Estimated GFR ML/MIN Glucose (74-106) mg/dL POC Glucometer 111 H (74 to 106) mg/dL Lactic Acid (0.4-2.0) Calcium (8.4-10.2) mg/dL Magnesium (1.6-2.3) mg/dL Total Bilirubin (0.2-1.3) mg/dL AST (17-59) U/L ALT (0-50) U/L Alkaline Phosphatase (38-126) U/L Troponin I < 0.012 (0.000-0.034) ng/mL Serum Total Protein (6.3-8.2) g/dL Albumin (3.5-5.0) g/dL Urine Color (YELLOW) Urine Appearance (CLEAR) Urine pH (5-6) Ur Specific [place] (1.005-1.025) Urine Protein (Negative) Urine Ketones (NEGATIVE) Urine Blood (0-5) Renato/ul Urine Nitrite (NEGATIVE) Urine Bilirubin (NEGATIVE) Urine Urobilinogen (0-1) mg/dL Ur Leukocyte Esterase (NEGATIVE) Urine WBC (Auto) (0-5) /HPF Urine RBC (Auto) (0-2) /HPF U Epithel Cells (Auto) (FEW) /HPF Urine Bacteria (Auto) (NEGATIVE) /HPF Urine Mucus (Auto) (NEGATIVE) /HPF Urine Culture Reflexed (NO) Urine Glucose (NEGATIVE) mg/dL Urine Opiates Level (NEGATIVE) Ur Methadone (NEGATIVE) Urine Barbiturates (NEGATIVE) Ur Phencyclidine (PCP) (NEGATIVE) Urine Amphetamine (NEGATIVE) U Benzodiazepine Level (NEGATIVE) Urine Cocaine (NEGATIVE) Urine Marijuana (THC) (NEGATIVE) Ethyl Alcohol (0-10) mg/dL SARS-CoV-2 (PCR) NEGATIVE (NEGATIVE) 04/28/21 04/28/21 04/28/21 Range/Units 11:04 08:20 08:20 WBC (4.0-10.5) K/mm3 RBC (4.1-5.6) M/mm3 Hgb (12.5-18.0) gm/dl Hct (42-50) % MCV (78-100) fl MCH (26-32) pg MCHC (32-36) g/dl RDW (11.5-14.0) % Plt Count (150-450) K/mm3 MPV (7.5-11.0) fl Gran % (36.0-66.0) % Eos # (Auto) (0-0.5) Absolute Lymphs (auto) (1.0-4.6) Absolute Monos (auto) (0.0-1.3) Lymphocytes % (24.0-44.0) % Monocytes % (0.0-12.0) % Eosinophils % (0.00-5.0) % Basophils % (0.0-0.4) % Absolute Granulocytes (1.4-6.9) Basophils # (0-0.4) Sodium 130 L (137-145) mmol/L Potassium 4.0 (3.5-5.1) mmol/L Chloride 91 L (98-107) mmol/L Carbon Dioxide 32 H (22-30) mmol/L Anion Gap 11.5 (5-15) MEQ/L BUN 22 H (9-20) mg/dL Creatinine 0.74 (0.66-1.25) mg/dL Estimated GFR > 60.0 ML/MIN Glucose 128 H (74-106) mg/dL POC Glucometer (74 to 106) mg/dL Lactic Acid (0.4-2.0) Calcium 8.8 (8.4-10.2) mg/dL Magnesium 1.8 (1.6-2.3) mg/dL Total Bilirubin 0.50 (0.2-1.3) mg/dL AST 25 (17-59) U/L ALT 12 (0-50) U/L Alkaline Phosphatase 83 (38-126) U/L Troponin I < 0.012 < 0.012 (0.000-0.034) ng/mL Serum Total Protein 7.7 (6.3-8.2) g/dL Albumin 3.5 (3.5-5.0) g/dL Urine Color (YELLOW) Urine Appearance (CLEAR) Urine pH (5-6) Ur Specific [place] (1.005-1.025) Urine Protein (Negative) Urine Ketones (NEGATIVE) Urine Blood (0-5) Renato/ul Urine Nitrite (NEGATIVE) Urine Bilirubin (NEGATIVE) Urine Urobilinogen (0-1) mg/dL Ur Leukocyte Esterase (NEGATIVE) Urine WBC (Auto) (0-5) /HPF Urine RBC (Auto) (0-2) /HPF U Epithel Cells (Auto) (FEW) /HPF Urine Bacteria (Auto) (NEGATIVE) /HPF Urine Mucus (Auto) (NEGATIVE) /HPF Urine Culture Reflexed (NO) Urine Glucose (NEGATIVE) mg/dL Urine Opiates Level (NEGATIVE) Ur Methadone (NEGATIVE) Urine Barbiturates (NEGATIVE) Ur Phencyclidine (PCP) (NEGATIVE) Urine Amphetamine (NEGATIVE) U Benzodiazepine Level (NEGATIVE) Urine Cocaine (NEGATIVE) Urine Marijuana (THC) (NEGATIVE) Ethyl Alcohol < 10 (0-10) mg/dL SARS-CoV-2 (PCR) (NEGATIVE) 04/28/21 04/28/21 04/28/21 Range/Units 08:20 08:15 07:42 WBC 11.6 H (4.0-10.5) K/mm3 RBC 4.61 (4.1-5.6) M/mm3 Hgb 14.1 (12.5-18.0) gm/dl Hct 43.4 (42-50) % MCV 94.1 (78-100) fl MCH 30.6 (26-32) pg MCHC 32.5 (32-36) g/dl RDW 14.6 H (11.5-14.0) % Plt Count 204 (150-450) K/mm3 MPV 10.5 (7.5-11.0) fl Gran % 84.7 H (36.0-66.0) % Eos # (Auto) 0.16 (0-0.5) Absolute Lymphs (auto) 0.92 L (1.0-4.6) Absolute Monos (auto) 0.67 (0.0-1.3) Lymphocytes % 7.9 L (24.0-44.0) % Monocytes % 5.8 (0.0-12.0) % Eosinophils % 1.4 (0.00-5.0) % Basophils % 0.2 (0.0-0.4) % Absolute Granulocytes 9.84 H (1.4-6.9) Basophils # 0.02 (0-0.4) Sodium (137-145) mmol/L Potassium (3.5-5.1) mmol/L Chloride (98-107) mmol/L Carbon Dioxide (22-30) mmol/L Anion Gap (5-15) MEQ/L BUN (9-20) mg/dL Creatinine (0.66-1.25) mg/dL Estimated GFR ML/MIN Glucose (74-106) mg/dL POC Glucometer (74 to 106) mg/dL Lactic Acid 0.7 (0.4-2.0) Calcium (8.4-10.2) mg/dL Magnesium (1.6-2.3) mg/dL Total Bilirubin (0.2-1.3) mg/dL AST (17-59) U/L ALT (0-50) U/L Alkaline Phosphatase (38-126) U/L Troponin I (0.000-0.034) ng/mL Serum Total Protein (6.3-8.2) g/dL Albumin (3.5-5.0) g/dL Urine Color (YELLOW) Urine Appearance (CLEAR) Urine pH (5-6) Ur Specific [place] (1.005-1.025) Urine Protein (Negative) Urine Ketones (NEGATIVE) Urine Blood (0-5) Renato/ul Urine Nitrite (NEGATIVE) Urine Bilirubin (NEGATIVE) Urine Urobilinogen (0-1) mg/dL Ur Leukocyte Esterase (NEGATIVE) Urine WBC (Auto) (0-5) /HPF Urine RBC (Auto) (0-2) /HPF U Epithel Cells (Auto) (FEW) /HPF Urine Bacteria (Auto) (NEGATIVE) /HPF Urine Mucus (Auto) (NEGATIVE) /HPF Urine Culture Reflexed (NO) Urine Glucose (NEGATIVE) mg/dL Urine Opiates Level NEGATIVE (NEGATIVE) Ur Methadone NEGATIVE (NEGATIVE) Urine Barbiturates NEGATIVE (NEGATIVE) Ur Phencyclidine (PCP) NEGATIVE (NEGATIVE) Urine Amphetamine NEGATIVE (NEGATIVE) U Benzodiazepine Level NEGATIVE (NEGATIVE) Urine Cocaine NEGATIVE (NEGATIVE) Urine Marijuana (THC) NEGATIVE (NEGATIVE) Ethyl Alcohol (0-10) mg/dL SARS-CoV-2 (PCR) (NEGATIVE) 04/28/21 Range/Units 07:42 WBC (4.0-10.5) K/mm3 RBC (4.1-5.6) M/mm3 Hgb (12.5-18.0) gm/dl Hct (42-50) % MCV (78-100) fl MCH (26-32) pg MCHC (32-36) g/dl RDW (11.5-14.0) % Plt Count (150-450) K/mm3 MPV (7.5-11.0) fl Gran % (36.0-66.0) % Eos # (Auto) (0-0.5) Absolute Lymphs (auto) (1.0-4.6) Absolute Monos (auto) (0.0-1.3) Lymphocytes % (24.0-44.0) % Monocytes % (0.0-12.0) % Eosinophils % (0.00-5.0) % Basophils % (0.0-0.4) % Absolute Granulocytes (1.4-6.9) Basophils # (0-0.4) Sodium (137-145) mmol/L Potassium (3.5-5.1) mmol/L Chloride (98-107) mmol/L Carbon Dioxide (22-30) mmol/L Anion Gap (5-15) MEQ/L BUN (9-20) mg/dL Creatinine (0.66-1.25) mg/dL Estimated GFR ML/MIN Glucose (74-106) mg/dL POC Glucometer (74 to 106) mg/dL Lactic Acid (0.4-2.0) Calcium (8.4-10.2) mg/dL Magnesium (1.6-2.3) mg/dL Total Bilirubin (0.2-1.3) mg/dL AST (17-59) U/L ALT (0-50) U/L Alkaline Phosphatase (38-126) U/L Troponin I (0.000-0.034) ng/mL Serum Total Protein (6.3-8.2) g/dL Albumin (3.5-5.0) g/dL Urine Color CARRI (YELLOW) Urine Appearance SLIGHTLY CLOUDY (CLEAR) Urine pH 7.0 (5-6) Ur Specific [place] 1.016 (1.005-1.025) Urine Protein 30 (Negative) Urine Ketones NEGATIVE (NEGATIVE) Urine Blood NEGATIVE (0-5) Renato/ul Urine Nitrite NEGATIVE (NEGATIVE) Urine Bilirubin NEGATIVE (NEGATIVE) Urine Urobilinogen NEGATIVE (0-1) mg/dL Ur Leukocyte Esterase NEGATIVE (NEGATIVE) Urine WBC (Auto) 0-2 (0-5) /HPF Urine RBC (Auto) 26-50 (0-2) /HPF U Epithel Cells (Auto) NONE (FEW) /HPF Urine Bacteria (Auto) RARE (NEGATIVE) /HPF Urine Mucus (Auto) SLIGHT (NEGATIVE) /HPF Urine Culture Reflexed YES (NO) Urine Glucose NEGATIVE (NEGATIVE) mg/dL Urine Opiates Level (NEGATIVE) Ur Methadone (NEGATIVE) Urine Barbiturates (NEGATIVE) Ur Phencyclidine (PCP) (NEGATIVE) Urine Amphetamine (NEGATIVE) U Benzodiazepine Level (NEGATIVE) Urine Cocaine (NEGATIVE) Urine Marijuana (THC) (NEGATIVE) Ethyl Alcohol (0-10) mg/dL SARS-CoV-2 (PCR) (NEGATIVE) - Progress Progress: improved Progress Note: 04/28/21 09:18 Patient is somewhat more lucid after IV fluid administration. Patient not complaining of abdominal pain. CT scan abdomen pelvis with contrast ordered. Results pending. Case discussed with Dr. Wallis who accepts admission to observation. Patient is Covid negative. 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
[2021-04-28 08:01] LABS: Appearance SLIGHTLY CLOUDY (CLEAR); Bacteria RARE /HPF (NEGATIVE); Bilirubin NEGATIVE (NEGATIVE); Blood NEGATIVE Ery/ul (0-5); Glucose NEGATIVE (NEGATIVE); Ketones NEGATIVE (NEGATIVE); Leukocyte Esterase NEGATIVE (NEGATIVE); Mucus SLIGHT /HPF (NEGATIVE); Nitrite NEGATIVE (NEGATIVE); Protein,Urine Dip 30 (Negative); RBC 26-50 /HPF (0-2); Specific Gravity 1.016 (1.005-1.025); Urobilinogen NEGATIVE mg/dL (0-1); WBC 0-2 /HPF (0-5)
[2021-04-28] MEDS ORDERED: Sodium Chloride 0.9% 1000 ML 1,000 ML ONE (08:06)
[2021-04-28 08:10] LABS: Amphetamine,Urine NEGATIVE (NEGATIVE); Barbiturate,Urine NEGATIVE (NEGATIVE); Benzodiazepine,Urine NEGATIVE (NEGATIVE); Cocaine,Urine NEGATIVE (NEGATIVE); Methadone,Urine NEGATIVE (NEGATIVE); Opiate,Urine NEGATIVE (NEGATIVE); THC,Urine NEGATIVE (NEGATIVE)
[2021-04-28 08:19] LABS: PCP,Urine NEGATIVE (NEGATIVE)
[2021-04-28 08:25] LABS: Absolute Neutrophil Ct (ANC) 9.84 (1.4-6.9); BASOPHIL % 0.2 % (0.0-0.4); Basophil (Absolute #) 0.02 (0-0.4); Eosinophil % 1.4 % (0.00-5.0); Eosinophil (Absolute #) 0.16 (0-0.5); Hematocrit 43.4 % (42-50); Hemoglobin 14.1 gm/dl (12.5-18.0); Lymphocyte (Absolute #) 0.92 (1.0-4.6); Lymphocytes % 7.9 % (24.0-44.0); Mean Cell Volume 94.1 fl (78-100); Mean Corpuscular Hemoglobin 30.6 pg (26-32); Mean Corpuscular Hgb Concent. 32.5 g/dl (32-36); Mean Platelet Volume 10.5 fl (7.5-11.0); Monocyte (Absolute #) 0.67 (0.0-1.3); Monocytes % 5.8 % (0.0-12.0); Neutrophil % 84.7 % (36.0-66.0); Platelet Count 204 K/mm3 (150-450); Red Blood Count 4.61 M/mm3 (4.1-5.6); Red Cell Distribution Width 14.6 % (11.5-14.0); White Blood Count 11.6 K/mm3 (4.0-10.5)
[2021-04-28 08:40] LABS: ALBUMIN 3.5 g/dL (3.5-5.0); ALKALINE PHOSPHATASE 83 U/L (38-126); ANION GAP 11.5 MEQ/L (5-15); BLOOD UREA NITROGEN 22 mg/dL (9-20); CHLORIDE 91 mmol/L (98-107); Calcium 8.8 mg/dL (8.4-10.2); Carbon Dioxide 32 mmol/L (22-30); Creatinine 1 0.74 mg/dL (0.66-1.25); EST GLOMERULAR FILTRATION RATE > 60.0 ML/MIN; ETHYL ALCOHOL < 10 mg/dL (0-10); Glucose 128 mg/dL (74-106); MAGNESIUM 1.8 mg/dL (1.6-2.3); SGOT/AST 25 U/L (17-59); SGPT/ALT 12 U/L (0-50); SODIUM 130 mmol/L (137-145); Total Protein 7.7 g/dL (6.3-8.2)
--- NOTE | 2021-04-28 08:42 | XRAY ---
CT of the head without IV contrast from 04/28/2021. CTDI: 53.92 mGy Comparison: CT of the head without IV contrast from 05/04/2020. Indication: 85-year-old male with altered mental status. Technique: Non-IV contrast axial images were obtained through the brain. Reconstructed coronal and sagittal images were created and reviewed. Findings: Both the ventricles and cortical sulci are prominent in a diffuse manner representing no change. This is consistent with cerebral volume loss/atrophy. I see no acute intracranial bleed or abnormal extra-axial fluid collection. No focal mass effect or midline shift is seen. There is moderate to marked bilateral patchy periventricular and subcortical white matter changes consistent with significant degenerative microtears ischemia of the white matter. In addition, I believe there is an old left frontal lobe infarct representing no change. There is a suggestion of a couple tiny low-attenuation densities within the left lentiform nucleus which may represent tiny lacunar infarcts. I don't believe this is significantly changed from 05/04/2020 in retrospect. There is some vascular calcification within the carotid siphons bilaterally. I also note some vascular calcification within the distal right vertebral artery. The posterior fossa reveals no significant finding other than some atrophy. Significant degenerative changes seen about the odontoid process at C1-C2 representing no change. The calvarium of the skull appears intact without fracture. The paranasal sinuses are clear without air-fluid levels. The mastoid air cells are clear without effusion. There appears to be considerable soft tissue density deep within the left external auditory canal which may represent cerumen. Correlate clinically. The right external auditory canal appears unremarkable. Impression: 1. I see no acute intracranial bleed or other acute intracranial process. 2. There is again noted to be moderate cerebral volume loss/atrophy and moderate to marked bilateral periventricular and subcortical chronic small vessel ischemic white matter changes. I believe there is also an old left frontal lobe infarct and a couple tiny lacunar infarcts within the left lentiform nucleus representing no change. 3. The left external auditory canal appears blocked with soft tissue density, perhaps representing cerumen. Correlate clinically.
--- NOTE | 2021-04-28 08:45 | XRAY ---
Exam: AP portable chest film from 04/28/2021. Comparison: AP portable chest film from 05/04/2020. Indication: Pneumonia? Findings: The transverse heart size is normal. A calcified, mildly tortuous descending thoracic aorta is seen. Lung volumes are again noted be relatively low with mild elevation of the right hemidiaphragm. A right-sided port is again noted with the distal catheter tip pointing inferiorly near the caval-atrial junction. There are mild diffuse mixed interstitial/alveolar opacities throughout the right lung and the lower two thirds of the left lung which appears relatively similar to the prior chest film from 05/04/2020. Therefore, this could be due to chronic interstitial lung disease. Correlate clinically. Only the left lung apex remains relatively clear. No pneumothorax or pleural fluid is seen. Degenerative changes are seen throughout the visualized spine, left shoulder, and right acromioclavicular joint. There is a suggestion of chronic rotator cuff disease within the left shoulder. Impression: 1. Underinflated chest which again reveals mild mixed interstitial/alveolar opacities throughout the right lung field, and to a slightly greater extent, the lower two thirds of the left lung field. This appears very similar to 05/04/2020 suggesting that this is chronic. Correlate clinically. A subtle superimposed acute infiltrate would be difficult to entirely exclude, particularly within the left lower lung field. 2. Right-sided portacatheter is seen in unchanged position.
[2021-04-28] MEDS ORDERED: NITRO-BID 2% UD PACKETS TOP ONE (09:20)
[2021-04-28] MEDS ORDERED: NITRO-BID 2% UD PACKETS ONE (09:23)
[2021-04-28] MEDS: BABY ASPIRIN 81 MG CHEW PO ONE ×2 (09:29→09:40)
[2021-04-28] MEDS ORDERED: BENADRYL 50 MG/ML IV ONE (10:37)
[2021-04-28] MEDS ORDERED: BENADRYL 50 MG/ML ONE (10:38)
--- NOTE | 2021-04-28 12:27 | XRAY ---
Exam: CT of the abdomen and pelvis with IV contrast from 04/28/2021. CTDI: 9.00 mGy Comparison: None. Indication: 85-year-old male with diarrhea; ? colitis. Technique: Post-IV contrast axial images were obtained through the abdomen and pelvis during automated injection of 80 cc of Isovue-370 contrast material. Reconstructed coronal and sagittal images were created and reviewed. The patient's arms are down by his side. Findings: The visualized lung bases reveal extensive bilateral lower lung field interstitial lung disease, most prominent in the subpleural location. I believe there are some small blebs and bulla. Some bronchiectasis is suspected within both posterior lung bases. Correlate clinically regarding idiopathic pulmonary fibrosis. A calcified granuloma is seen at the posterior right lung base. I also note some granulomatous calcifications within the subcarinal projection and right infrahilar projection. The heart size is normal. Extensive coronary artery vascular calcification is seen. The liver is of unremarkable size. A few scattered hepatic calcified granulomas are seen. No hepatic mass or intrahepatic biliary duct distention is seen. The gallbladder is distended measuring about 9.9 cm in length and 3.6 cm in width. It contains noncalcified soft tissue densities layering along the posterior gallbladder lumen which could represent sludge or noncalcified stones. Gallbladder wall is not thickened. No extrahepatic bile duct distention is seen. The spleen appears of unremarkable size and reveals no mass. Numerous calcified splenic granulomas are seen. A tortuous, densely calcified splenic artery is seen. The pancreas reveals no focal or diffuse enlargement or peripancreatic inflammatory changes. No pancreatic duct distention is seen. 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 The adrenal glands appear unremarkable. The kidneys appear of average size. Renal artery vascular calcification is seen bilaterally. The kidneys function on delay images. A renal mass or hydronephrosis is not seen. The opacified portions of the ureters on the delayed images appear unremarkable. There is marked atherosclerotic vascular calcification throughout the abdominal aorta, iliac arteries, and common femoral arteries. It appears the patient has had prior aortobifemoral bypass surgery. Clot is seen within the [place] proximal common iliac arteries. 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 No abnormal retroperitoneal lymphadenopathy is seen. There is no free intraperineal air or bowel containing ventral hernia. The bowel appears nonobstructed. I see no bowel wall thickening, particularly within the colon to suggest colitis. There is extensive stool scattered throughout the colon with the largest amount seen within the rectum, the latter measuring 8.2 cm in width and 7.5 cm in AP dimension on axial image #89. This is consistent with fecal impaction. The rectal wall appears mildly thickened. I believe there are some scattered sigmoid colon diverticula without evidence of acute diverticulitis. I see no findings to suggest appendicitis within the right lower quadrant. Mild artifact is seen due to respiratory motion and the fact that the patient's arms are down by his side. A urinary Jorge catheter the distal balloon is seen within the urinary bladder. A small amount of air is seen within the anterior aspect of the urinary bladder lumen, probably introduced at the time of catheter placement. Correlate clinically to exclude a gas-forming UTI. A small amount of remaining urine is seen within the urinary bladder despite the catheter. The urinary bladder wall appears mildly thickened which could be due to bladder outlet obstruction or cystitis. The seminal vesicles appear unremarkable. The prostate gland is enlarged measuring at least 6.0 cm in width on axial image #90. No abnormal pelvic lymphadenopathy or free fluid is seen. I again see marked atherosclerotic vascular calcification in the pelvis. The skeleton reveals evidence of prior lower lumbar laminectomy at L4-L5. There is severe scattered osteoarthritis throughout the visualized lower thoracolumbar spine. Schmorl's nodes are seen within the superior and inferior vertebral endplates of T12. There is minimal anterior wedging of T11 and T12. There appears to be fusion at T9-T10 as well as L4-L5. I note some diffuse sclerotic changes within L3, the lower aspect of L2, and the upper aspect of L4. Correlate clinically regarding osteoblastic metastasis, perhaps due to prostate cancer. No obvious osteolytic bone destruction is seen. Impression: 1. I see no definite findings to suggest colitis. 2. There is a large amount of scattered stool throughout the colon suggesting constipation. This is greatest amount of stool is seen within the distal rectosigmoid colon, where I believe there is fecal impaction. A definite bowel obstruction is not seen. Mild sigmoid colon diverticulosis without evidence of diverticulitis is seen. 3. Distended gallbladder with posterior layering intraluminal biliary sludge versus noncalcified gallstones. No biliary duct distention is seen. 4. There is extensive interstitial lung disease seen within the visualized lower lung lange, particularly within the subpleural regions. Correlate clinically regarding idiopathic pulmonary fibrosis. 5. Old healed granulomatous disease, extensive atherosclerotic vascular calcification, findings consistent with chronic calcific pancreatitis, and evidence of prior aortobifemoral bypass are seen. 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 6. There is at least moderate enlargement of the prostate gland. A Jorge catheter is seen within the urinary bladder with minimal residual urine. Some air density is seen within the anterior aspect of the urinary bladder lumen, as well as some bladder wall thickening. Correlate clinically regarding UTI and bladder outlet obstruction. See above. I see evidence of prior laminectomy at L4-L5. Furthermore, there are some sclerotic vertebra within the mid lumbar spine involving the lower aspect of L2, all of L3, and upper aspect of L4. Osteoblastic metastasis, perhaps due to prostate cancer, cannot be radiographically excluded. Severe degenerative osteoarthritis is seen throughout the thoracolumbar spine as well.
[2021-04-28] MEDS ORDERED: MORPHINE SULFATE 2 MG INJ IV PRN (17:44)
[2021-04-28] MEDS: Sodium Chloride 0.9% 1000 ML 1,000 ML IV SCH (20:26)
[2021-04-29 05:22] LABS: Absolute Neutrophil Ct (ANC) 6.97 (1.4-6.9); BASOPHIL % 0.6 % (0.0-0.4); Basophil (Absolute #) 0.05 (0-0.4); Eosinophil % 2.4 % (0.00-5.0); Eosinophil (Absolute #) 0.22 (0-0.5); Hemoglobin 13.8 gm/dl (12.5-18.0); Lymphocyte (Absolute #) 1.14 (1.0-4.6); Lymphocytes % 12.6 % (24.0-44.0); Mean Cell Volume 96.5 fl (78-100); Mean Corpuscular Hemoglobin 30.3 pg (26-32); Mean Corpuscular Hgb Concent. 31.4 g/dl (32-36); Mean Platelet Volume 10.5 fl (7.5-11.0); Monocyte (Absolute #) 0.64 (0.0-1.3); Monocytes % 7.1 % (0.0-12.0); Neutrophil % 77.3 % (36.0-66.0); Platelet Count 216 K/mm3 (150-450); Red Blood Count 4.56 M/mm3 (4.1-5.6)
[2021-04-29 05:44] LABS: ALBUMIN 3.3 g/dL (3.5-5.0); ALKALINE PHOSPHATASE 81 U/L (38-126); ANION GAP 13.3 MEQ/L (5-15); BLOOD UREA NITROGEN 19 mg/dL (9-20); CHLORIDE 94 mmol/L (98-107); Calcium 9.1 mg/dL (8.4-10.2); Carbon Dioxide 28 mmol/L (22-30); Creatinine 1 0.76 mg/dL (0.66-1.25); EST GLOMERULAR FILTRATION RATE > 60.0 ML/MIN; Glucose 158 mg/dL (74-106); Potassium 4.2 mmol/L (3.5-5.1); SGOT/AST 31 U/L (17-59); SGPT/ALT 12 U/L (0-50); SODIUM 132 mmol/L (137-145); Total Protein 7.3 g/dL (6.3-8.2)
[2021-04-29] MEDS: Toprol-Xl 25MG Tablets PO SCH (09:18)
[2021-04-29] MEDS: Ranexa 500 MG PO SCH (09:24)
[2021-04-29] MEDS: ECOTRIN 81 MG PO SCH (09:24)
[2021-04-29] MEDS: Depakote EXTENDED RELEASE 250 MG PO SCH (09:24)
[2021-04-29] MEDS: ZOCOR 20MG PO SCH (09:25)
[2021-04-29] MEDS: Sodium Chloride 0.9% 1000 ML 1,000 ML IV SCH (09:29)
[2021-04-29] MEDS ORDERED: NON-FORMULARY ITEM (Lovastatin [Lovastatin] 40 MG) PO SCH (10:00)
[2021-04-29] MEDS ORDERED: LASIX 20 MG PO SCH (10:00)
[2021-04-29] MEDS ORDERED: NON-FORMULARY ITEM (Aspirin [Aspirin] 81 MG) PO SCH (10:00)
[2021-04-29] MEDS ORDERED: TYLENOL 325 MG PO PRN (12:53)
[2021-04-29] MEDS ORDERED: LASIX 20 MG PO ONE (13:00)
--- NOTE | 2021-04-29 13:37 | PCM.HP ---
History of Present Illness - Chief Complaint Chief Complaint: confusion and diarrhea for 2-3 days History of Present Illness: is a 85 year old male.for evaluation of altered mental status. reports the patient was unresponsive this morning. Patient reportedly has been experiencing ongoing diarrhea since March. attributes his altered mental status to his diarrhea. Patient is a known diabetic. History of toe amputation right lower extremity. Patient is a poor historian therefore this HPI is limited. Patient is responsive to verbal and tactile stimulation. No signs of trauma. Symptoms are moderate in intensity. No specific worsening improving factors. Accu-Chek via EMS was 141. Vitals are stable. Patient afebrile. No signs of trauma. - Review of Systems Constitutional: Lethargy, Malaise, Weakness, No Fever, No Chills Eyes: No Symptoms Ears, Nose, & Throat: No Symptoms Respiratory: No Cough, No Short Of Breath Cardiac: No Chest Pain, No Edema, No Syncope Abdominal/Gastrointestinal: Diarrhea, No Abdominal Pain, No Nausea, No Vomiting Genitourinary Symptoms: No Dysuria Musculoskeletal: No Back Pain, No Neck Pain Skin: No Rash Neurological: Lethargy, No Dizziness, No Focal Weakness, No Sensory Changes Psychological: No Symptoms Endocrine: No Symptoms Hematologic/Lymphatic: No Symptoms Immunological/Allergic: No Symptoms Medications & Allergies Home Medications: Home Medication List Donepezil HCl 1 tablet PO HS 05/04/20 [History Confirmed 04/28/21] Furosemide 20 mg [Lasix 20 mg] 1 ea PO DAILY 05/04/20 [History Confirmed 04/28/21] Metoprolol Succinate 25 mg PO HS 05/04/20 [History Confirmed 04/28/21] Ranolazine [Ranolazine ER] 500 mg PO BID 05/04/20 [History Confirmed 04/28/21] Aspirin 81 mg PO DAILY 04/28/21 [History Confirmed 04/28/21] Divalproex Sodium ER 250 mg [Depakote EXTENDED RELEASE 250 MG] 125 mg PO BID 04/28/21 [History Confirmed 04/28/21] Lovastatin 40 mg PO DAILY 04/28/21 [History Confirmed 04/28/21] Metoprolol Succinate 50 mg PO DAILY 04/28/21 [History Confirmed 04/28/21] Allergies/Adverse Reactions: Allergies Allergy/AdvReac Type Severity Reaction Status Date / Time No Known Drug Allergies Allergy Verified 05/04/20 15:24 - Past Medical History Past Medical History: Yes Neurological History: Migraines, Stroke ENT History: No Pertinent History Cardiac History: Hypertension Respiratory History: No Pertinent History Endocrine Medical History: Diabetes Type II, Hypoglycemia Musculoskelatal History: Arthritis, Osteoarthritis GI Medical History: Hemorrhoids History: No Pertinent History Pyscho-Social History: No Pertinent History Male Reproductive Disorders: No Pertinent History - Past Surgical History Past Surgical History: Yes Neuro Surgical History: No Pertinent History Cardiac History: No Pertinent History Respiratory Surgery: No Pertinent History, Chest Surgery GI Surgical History: No Pertinent History Genitourinary Surgical Hx: No Pertinent History Musculskeletal Surgical Hx: No Pertinent History, Amputation Male Surgical History: No Pertinent History Other Surgical History: Back Surgery, neck surgery, Right toes amputated, states chest surgery Unsure of specifics - Social History Smoking Status: Former smoker Exposure to second hand smoke: No Alcohol: None Drug Use: none - Physical Exam Vital Signs: Vital Signs - 24 hr Temp Pulse Resp BP Pulse Ox 04/29/21 11:48 97.1 F 92 H 20 122/78 95 04/29/21 10:10 98 04/29/21 07:46 97.6 F 103 H 14 115/81 99 04/29/21 04:03 96.8 F 92 H 20 132/70 95 04/29/21 00:00 20 04/28/21 23:32 97.4 F 90 20 105/54 95 04/28/21 19:27 94 L 04/28/21 17:40 96.9 F 100 H 20 124/52 98 04/28/21 17:38 96.9 F 100 H 20 124/52 98 04/28/21 17:05 97 04/28/21 17:01 97.8 F 100 H 20 118/72 98 04/28/21 16:18 97.8 F 97 H 20 95/75 96 04/28/21 15:07 101 H 17 155/96 04/28/21 14:02 98.2 F 91 H 20 123/85 98 General Appearance: mild distress Neurologic Exam: alert Eye Exam: PERRL/EOMI, eyes nml inspection Ears, Nose, Throat Exam: normal ENT inspection Neck Exam: normal inspection Respiratory Exam: diminished breath sounds Cardiovascular Exam: irregular Gastrointestinal/Abdomen Exam: soft, normal bowel sounds Rectal Exam: deferred Back Exam: normal inspection Extremity Exam: amputations Skin Exam: dry Wound Assessment: Skin/Wound Assessment Wound/Incision Assessment Start: 04/28/21 18:51 Text: Status: Active Freq: Q6H Protocol: Document 04/29/21 07:26 FELA (Rec: 04/29/21 07:37 FELA [id number]) Wound/Incision Assessment Right Foot Wound Assessment Shift Assessment Wound Type SCABBED AREA ON STUMP Drainage Amount None Drainage Odor None/Absent Comment AMBUTATION Left Toe Wound Assessment Shift Assessment Wound Type SCABBED AREA Drainage Amount None Drainage Odor None/Absent General Appearance Open to air Results - Labs Lab/Micro Results: Lab Results-Last 24 Hours 04/28/21 04/28/21 04/28/21 Range/Units 13:51 15:38 16:50 WBC (4.0-10.5) K/mm3 RBC (4.1-5.6) M/mm3 Hgb (12.5-18.0) gm/dl Hct (42-50) % MCV (78-100) fl MCH (26-32) pg MCHC (32-36) g/dl RDW (11.5-14.0) % Plt Count (150-450) K/mm3 MPV (7.5-11.0) fl Gran % (36.0-66.0) % Eos # (Auto) (0-0.5) Absolute Lymphs (auto) (1.0-4.6) Absolute Monos (auto) (0.0-1.3) Lymphocytes % (24.0-44.0) % Monocytes % (0.0-12.0) % Eosinophils % (0.00-5.0) % Basophils % (0.0-0.4) % Absolute Granulocytes (1.4-6.9) Basophils # (0-0.4) Sodium (137-145) mmol/L Potassium (3.5-5.1) mmol/L Chloride (98-107) mmol/L Carbon Dioxide (22-30) mmol/L Anion Gap (5-15) MEQ/L BUN (9-20) mg/dL Creatinine (0.66-1.25) mg/dL Estimated GFR ML/MIN Glucose (74-106) mg/dL POC Glucometer (74 to 106) mg/dL Hemoglobin A1c (4.5-6.0) % Calcium (8.4-10.2) mg/dL Total Bilirubin (0.2-1.3) mg/dL AST (17-59) U/L ALT (0-50) U/L Alkaline Phosphatase (38-126) U/L Troponin I < 0.012 < 0.012 (0.000-0.034) ng/mL Serum Total Protein (6.3-8.2) g/dL Albumin (3.5-5.0) g/dL SARS-CoV-2 (PCR) NEGATIVE (NEGATIVE) 04/28/21 04/28/21 04/29/21 Range/Units 18:00 20:00 05:00 WBC 9.0 (4.0-10.5) K/mm3 RBC 4.56 (4.1-5.6) M/mm3 Hgb 13.8 (12.5-18.0) gm/dl Hct 44.0 (42-50) % MCV 96.5 (78-100) fl MCH 30.3 (26-32) pg MCHC 31.4 L (32-36) g/dl RDW 15.0 H (11.5-14.0) % Plt Count 216 (150-450) K/mm3 MPV 10.5 (7.5-11.0) fl Gran % 77.3 H (36.0-66.0) % Eos # (Auto) 0.22 (0-0.5) Absolute Lymphs (auto) 1.14 (1.0-4.6) Absolute Monos (auto) 0.64 (0.0-1.3) Lymphocytes % 12.6 L (24.0-44.0) % Monocytes % 7.1 (0.0-12.0) % Eosinophils % 2.4 (0.00-5.0) % Basophils % 0.6 (0.0-0.4) % Absolute Granulocytes 6.97 H (1.4-6.9) Basophils # 0.05 (0-0.4) Sodium (137-145) mmol/L Potassium (3.5-5.1) mmol/L Chloride (98-107) mmol/L Carbon Dioxide (22-30) mmol/L Anion Gap (5-15) MEQ/L BUN (9-20) mg/dL Creatinine (0.66-1.25) mg/dL Estimated GFR ML/MIN Glucose (74-106) mg/dL POC Glucometer (74 to 106) mg/dL Hemoglobin A1c 8.01 H (4.5-6.0) % Calcium (8.4-10.2) mg/dL Total Bilirubin (0.2-1.3) mg/dL AST (17-59) U/L ALT (0-50) U/L Alkaline Phosphatase (38-126) U/L Troponin I < 0.012 (0.000-0.034) ng/mL Serum Total Protein (6.3-8.2) g/dL Albumin (3.5-5.0) g/dL SARS-CoV-2 (PCR) (NEGATIVE) 04/29/21 04/29/21 04/29/21 Range/Units 05:00 06:55 11:17 WBC (4.0-10.5) K/mm3 RBC (4.1-5.6) M/mm3 Hgb (12.5-18.0) gm/dl Hct (42-50) % MCV (78-100) fl MCH (26-32) pg MCHC (32-36) g/dl RDW (11.5-14.0) % Plt Count (150-450) K/mm3 MPV (7.5-11.0) fl Gran % (36.0-66.0) % Eos # (Auto) (0-0.5) Absolute Lymphs (auto) (1.0-4.6) Absolute Monos (auto) (0.0-1.3) Lymphocytes % (24.0-44.0) % Monocytes % (0.0-12.0) % Eosinophils % (0.00-5.0) % Basophils % (0.0-0.4) % Absolute Granulocytes (1.4-6.9) Basophils # (0-0.4) Sodium 132 L (137-145) mmol/L Potassium 4.2 (3.5-5.1) mmol/L Chloride 94 L (98-107) mmol/L Carbon Dioxide 28 (22-30) mmol/L Anion Gap 13.3 (5-15) MEQ/L BUN 19 (9-20) mg/dL Creatinine 0.76 (0.66-1.25) mg/dL Estimated GFR > 60.0 ML/MIN Glucose 158 H (74-106) mg/dL POC Glucometer 153 H 210 H (74 to 106) mg/dL Hemoglobin A1c (4.5-6.0) % Calcium 9.1 (8.4-10.2) mg/dL Total Bilirubin 0.70 (0.2-1.3) mg/dL AST 31 (17-59) U/L ALT 12 (0-50) U/L Alkaline Phosphatase 81 (38-126) U/L Troponin I (0.000-0.034) ng/mL Serum Total Protein 7.3 (6.3-8.2) g/dL Albumin 3.3 L (3.5-5.0) g/dL SARS-CoV-2 (PCR) (NEGATIVE) Microbiology 04/28/21 07:42 Urine Culture - Final Clean Catch Midstream NO GROWTH Accuchecks Date 04/29/21 - Radiology Impressions Radiology Exams & Impressions: Radiology Procedures Category Date Time Status ABDOMEN AND PELVIS W CONTRAST [CT] Stat Exams 04/28/21 09:16 Completed CHEST 1 VIEW (PORTABLE) Stat Exams 04/28/21 07:38 Completed HEAD WITHOUT CONTRAST [CT] Stat Exams 04/28/21 07:[address]/ABDOMEN AND PELVIS W CONTRAST Exam: CT of the abdomen and pelvis with IV contrast from 04/28/2021. CTDI: 9.00 mGy Comparison: None. Indication: 85-year-old male with diarrhea; ? colitis. Technique: Post-IV contrast axial images were obtained through the abdomen and pelvis during automated injection of 80 cc of Isovue-370 contrast material. Reconstructed coronal and sagittal images were created and reviewed. The patient's arms are down by his side. Findings: The visualized lung bases reveal extensive bilateral lower lung field interstitial lung disease, most prominent in the subpleural location. I believe there are some small blebs and bulla. Some bronchiectasis is suspected within both posterior lung bases. Correlate clinically regarding idiopathic pulmonary fibrosis. A calcified granuloma is seen at the posterior right lung base. I also note some granulomatous calcifications within the subcarinal projection and right infrahilar projection. The heart size is normal. Extensive coronary artery vascular calcification is seen. The liver is of unremarkable size. A few scattered hepatic calcified granulomas are seen. No hepatic mass or intrahepatic biliary duct distention is seen. The gallbladder is distended measuring about 9.9 cm in length and 3.6 cm in width. It contains noncalcified soft tissue densities layering along the posterior gallbladder lumen which could represent sludge or noncalcified stones. Gallbladder wall is not thickened. No extrahepatic bile duct distention is seen. The spleen appears of unremarkable size and reveals no mass. Numerous calcified splenic granulomas are seen. A tortuous, densely calcified splenic artery is seen. The pancreas reveals no focal or diffuse enlargement or peripancreatic inflammatory changes. No pancreatic duct distention is seen. 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 The adrenal glands appear unremarkable. The kidneys appear of average size. Renal artery vascular calcification is seen bilaterally. The kidneys function on delay images. A renal mass or hydronephrosis is not seen. The opacified portions of the ureters on the delayed images appear unremarkable. There is marked atherosclerotic vascular calcification throughout the abdominal aorta, iliac arteries, and common femoral arteries. It appears the patient has had prior aortobifemoral bypass surgery. Clot is seen within the [place] proximal common iliac arteries. 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 No abnormal retroperitoneal lymphadenopathy is seen. There is no free intraperineal air or bowel containing ventral hernia. The bowel appears nonobstructed. I see no bowel wall thickening, particularly within the colon to suggest colitis. There is extensive stool scattered throughout the colon with the largest amount seen within the rectum, the latter measuring 8.2 cm in width and 7.5 cm in AP dimension on axial image #89. This is consistent with fecal impaction. The rectal wall appears mildly thickened. I believe there are some scattered sigmoid colon diverticula without evidence of acute diverticulitis. I see no findings to suggest appendicitis within the right lower quadrant. Mild artifact is seen due to respiratory motion and the fact that the patient's arms are down by his side. A urinary Jorge catheter the distal balloon is seen within the urinary bladder. A small amount of air is seen within the anterior aspect of the urinary bladder lumen, probably introduced at the time of catheter placement. Correlate clinically to exclude a gas-forming UTI. A small amount of remaining urine is seen within the urinary bladder despite the catheter. The urinary bladder wall appears mildly thickened which could be due to bladder outlet obstruction or cystitis. The seminal vesicles appear unremarkable. The prostate gland is enlarged measuring at least 6.0 cm in width on axial image #90. No abnormal pelvic lymphadenopathy or free fluid is seen. I again see marked atherosclerotic vascular calcification in the pelvis. The skeleton reveals evidence of prior lower lumbar laminectomy at L4-L5. There is severe scattered osteoarthritis throughout the visualized lower thoracolumbar spine. Schmorl's nodes are seen within the superior and inferior vertebral endplates of T12. There is minimal anterior wedging of T11 and T12. There appears to be fusion at T9-T10 as well as L4-L5. I note some diffuse sclerotic changes within L3, the lower aspect of L2, and the upper aspect of L4. Correlate clinically regarding osteoblastic metastasis, perhaps due to prostate cancer. No obvious osteolytic bone destruction is seen. Impression: 1. I see no definite findings to suggest colitis. 2. There is a large amount of scattered stool throughout the colon suggesting constipation. This is greatest amount of stool is seen within the distal rectosigmoid colon, where I believe there is fecal impaction. A definite bowel obstruction is not seen. Mild sigmoid colon diverticulosis without evidence of diverticulitis is seen. 3. Distended gallbladder with posterior layering intraluminal biliary sludge versus noncalcified gallstones. No biliary duct distention is seen. 4. There is extensive interstitial lung disease seen within the visualized lower lung lange, particularly within the subpleural regions. Correlate clinically regarding idiopathic pulmonary fibrosis. 5. Old healed granulomatous disease, extensive atherosclerotic vascular calcification, findings consistent with chronic calcific pancreatitis, and evidence of prior aortobifemoral bypass are seen. 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 6. There is at least moderate enlargement of the prostate gland. A Jorge catheter is seen within the urinary bladder with minimal residual urine. Some air density is seen within the anterior aspect of the urinary bladder lumen, as well as some bladder wall thickening. Correlate clinically regarding UTI and bladder outlet obstruction. See above. I see evidence of prior laminectomy at L4-L5. Furthermore, there are some sclerotic vertebra within the mid lumbar spine involving the lower aspect of L2, all of L3, and upper aspect of L4. Osteoblastic metastasis, perhaps due to prostate cancer, cannot be radiographically excluded. Severe degenerative osteoarthritis is seen throughout the thoracolumbar spine as well. - Other Procedures and Tests Respiratory Therapy 04/28/21 19:26 Oxygen NASAL CANNULA 2.5 lpm Assessment/Plan (1) Altered mental state Current Visit: Yes Status: Acute Qualifiers: Altered mental status type: delirium Qualified Code(s): R41.0 - Disorientation, unspecified Code(s): R41.82 - ALTERED MENTAL STATUS, UNSPECIFIED
[2021-04-29] MEDS ORDERED: Aricept 10 MG PO SCH (22:00)
[2021-04-29] MEDS ORDERED: Toprol-Xl 25MG Tablets PO SCH (22:00)
[2021-04-30] MEDS: Depakote EXTENDED RELEASE 250 MG PO SCH ×2 (09:23→09:25)
[2021-04-30] MEDS: Ranexa 500 MG PO SCH ×2 (09:23→09:25)
[2021-04-30] MEDS: ECOTRIN 81 MG PO SCH (09:25)
[2021-04-30] MEDS: ZOCOR 20MG PO SCH (09:25)
[2021-04-30] MEDS: Toprol-Xl 25MG Tablets PO SCH (09:25)
[2021-04-30] MEDS ORDERED: Lasix 40 MG PO SCH (10:00)
--- NOTE | 2021-04-30 12:25 | PCM.DS ---
Discharge Summary Date of Admission: 04/28/21 17:24 Admitting Physician: SALINA WALLIS Primary Care Provider: SALINA WALLIS Allergies Allergies No Known Drug Allergies Allergy (Verified 05/04/20 15:24) Hospital Summary - Hospital Course Hospital Course: Chief Complaint Diagnosis confusion and diarrhea for 2-3 days Allergies Allergy/AdvReac Type Severity Reaction Status Date / Time No Known Drug Allergies Allergy Verified 05/04/20 15:24 Vital Signs (Last 24 hours) Temp Pulse Resp BP Pulse Ox 04/30/21 10:46 97 04/30/21 08:00 96.7 F 92 H 16 119/56 94 L 04/29/21 19:38 19 04/29/21 16:00 97.1 F 93 H 19 111/76 99 Home Medications Medication Instructions Recorded Confirmed Last Taken Type Aspirin 81 mg PO DAILY 04/28/21 04/28/21 04/27/21 History Divalproex Sodium ER 250 mg 125 mg PO BID 04/28/21 04/28/21 04/27/21 History [Depakote EXTENDED RELEASE 250 MG] Lovastatin 40 mg PO DAILY 04/28/21 04/28/21 04/27/21 History Metoprolol Succinate 50 mg PO DAILY 04/28/21 04/28/21 04/28/21 History Current Medications Generic Name Dose Route Start Last Admin Trade Name Freq PRN Reason Stop Dose Admin Acetaminophen 650 mg 04/29/21 12:53 Tylenol 325 Mg PO 05/29/21 12:52 Q4H PRN PRN PAIN AND/OR FEVER Aspirin 81 mg 04/29/21 10:00 04/30/21 09:25 Ecotrin 81 Mg PO 05/29/21 09:59 81 mg DAILY RIMMA Administration Divalproex Sodium 125 mg 04/29/21 10:00 04/30/21 09:25 Depakote Extended Release 250 Mg PO 05/29/21 09:59 125 mg BID RIMMA Administration Donepezil HCl 10 mg 04/29/21 22:00 04/30/21 09:22 Aricept 10 Mg PO 05/29/21 21:59 Not Given HS RIMMA Furosemide 40 mg 04/30/21 10:00 04/30/21 09:25 Lasix 40 Mg PO 05/30/21 09:59 40 mg DAILY RIMMA Administration Sodium Chloride 1,000 mls @ 75 mls/hr 04/28/21 17:44 04/29/21 09:29 Sodium Chloride 0.9% 1000 Ml IV 05/28/21 17:43 75 mls/hr .[id number] RIMMA Administration Metoprolol Succinate 25 mg 04/29/21 22:00 04/30/21 09:23 Toprol-Xl 25mg Tablets PO 05/29/21 21:59 Not Given HS RIMMA Metoprolol Succinate 50 mg 04/29/21 10:00 04/30/21 09:25 Toprol-Xl 25mg Tablets PO 05/29/21 09:59 50 mg DAILY RIMMA Administration Ranolazine 500 mg 04/29/21 10:00 04/30/21 09:25 Ranexa 500 Mg PO 05/29/21 09:59 500 mg BID RIMMA Administration Simvastatin 20 mg 04/29/21 10:00 04/30/21 09:25 Zocor 20mg PO 05/29/21 09:59 20 mg DAILY RIMMA Administration Discontinued Medications Generic Name Dose Route Start Last Admin Trade Name Freq PRN Reason Stop Dose Admin Aspirin 324 mg 04/28/21 09:20 04/28/21 09:40 Baby Aspirin 81 Mg Chew PO 04/28/21 09:21 Not Given STAT ONE Diphenhydramine HCl 25 mg 04/28/21 10:37 04/28/21 10:39 Benadryl 50 Mg/Ml IV 04/28/21 10:38 25 mg STAT ONE Administration Diphenhydramine HCl Confirm 04/28/21 10:38 Benadryl 50 Mg/Ml Administered 04/28/21 10:39 Dose 50 mg .ROUTE .STK-MED ONE Furosemide 20 mg 04/29/21 10:00 04/29/21 09:24 Lasix 20 Mg PO 05/29/21 09:59 20 mg DAILY RIMMA Administration Furosemide 20 mg 04/29/21 13:00 04/29/21 12:47 Lasix 20 Mg PO 04/29/21 13:01 20 mg ONCE ONE Administration Sodium Chloride 1,000 mls @ 999 mls/hr 04/28/21 07:36 04/28/21 09:33 Sodium Chloride 0.9% 1000 Ml IV 04/28/21 08:36 Infused .Q1H1M STA Infusion Sodium Chloride Confirm 04/28/21 08:06 Sodium Chloride 0.9% 1000 Ml Administered 04/28/21 08:07 Dose 1,000 mls @ ud .ROUTE .STK-MED ONE Morphine Sulfate 2 mg 04/28/21 17:44 Morphine Sulfate 2 Mg Inj IV 05/03/21 17:43 Q4H PRN PRN PAIN Nitroglycerin 1 gm 04/28/21 09:20 04/28/21 09:30 Nitro-Bid 2% Ud Packets TOP 04/28/21 09:21 1 gm STAT ONE Administration Nitroglycerin Confirm 04/28/21 09:23 Nitro-Bid 2% Ud Packets Administered 04/28/21 09:24 Dose 1 gm .ROUTE .STK-MED ONE Intake & Output (Last 24 hours) 04/28/21 04/29/21 04/30/21 05/01/21 11:59 11:59 11:59 11:59 Intake Total 689 2106 Output Total 548 956 8207 Balance -683 13 4030 Weight 65 kg 67.4 kg Laboratory Results (Last 24 hours) 04/30/21 04/29/21 11:48 16:51 POC Glucometer 236 H 182 H Orders (Last 24 hours) Category Date Time Status Engineering Operator/Discharge Plan ROUTINE Cons 04/29/21 12:27 Active Boost Diet 04/29/21 Dinner Active POCT GLUCOSE Stat Lab 04/29/21 16:51 Completed POCT GLUCOSE Stat Lab 04/30/21 11:48 Completed Acetaminophen 325 mg [Tylenol 325 mg] Med 04/29/21 12:53 Active 650 mg PO Q4H PRN PRN Donepezil HCl 10 mg [Aricept 10 MG] Med 04/29/21 22:00 Active 10 mg PO HS Furosemide 20 mg [Lasix 20 mg] Med 04/29/21 13:00 Discontinued 20 mg PO ONCE ONE Furosemide 40 mg [Lasix 40 MG] Med 04/30/21 10:00 Active 40 mg PO DAILY Metoprolol Succinate 25 mg Xl* [Toprol-Xl 25MG Tablets* Med 04/29/21 22:00 Active ] 25 mg PO HS Patient Care Notes (Last 24 hours) 04/30/21 11:53 Case Management Note by Korin Ortiz S/W THIS AM- SHE PLANS FOR PATIENT TO RETURN HOME WITH HER CARE AT TIME OF DC. 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 SHE IS INTERESTED IN A HOSPITAL BED. [facility]- SHE WILL CHECK WITH [facility] OR [facility] ABOUT GETTING ONE OR WILL LET THE HHC KNOW. SHE DENIES ANY NEW NEEDS AT TIME OF DC Initialized on 04/30/21 11:53 - END OF NOTE - Vitals & Intake/Output Vital Signs: Vital Signs Temperature 96.7 F 04/30/21 08:00 Pulse Rate 92 H 04/30/21 08:00 Respiratory Rate 16 04/30/21 08:00 Blood Pressure 119/56 04/30/21 08:00 O2 Sat by Pulse Oximetry 97 04/30/21 10:46 Intake & Output: Intake & Output 04/28/21 04/29/21 04/30/21 05/01/21 11:59 11:59 11:59 11:59 Intake Total 689 2106 Output Total 627 834 7076 Balance -409 91 8569 Weight 65 kg 67.4 kg - Lab Result Diagrams: 04/29/21 05:00 04/29/21 05:00 Lab Results-Last 24 Hrs: Lab Results-Last 24 Hours 04/29/21 04/30/21 Range/Units 16:51 11:48 POC Glucometer 182 H 236 H (74 to 106) mg/dL Micro Results-Entire Visit: Microbiology 04/28/21 07:42 Urine Culture - Final Clean Catch Midstream NO GROWTH Accuchecks Date 04/29/21 - Procedures and Test Procedures and Tests throughout Hospitalization: Therapy Orders & Screens 04/28/21 19:26 Oxygen NASAL CANNULA 2.5 lpm Comment: Diagnosis: AMS Discharge Exam General Appearance: no apparent distress, alert Neurologic Exam: alert, oriented x 3, cooperative, normal mood/affect, nml cerebellar function, sensation nml, No motor deficits Eye Exam: PERRL, EOMI, eyes nml inspection Ears, Nose, Throat Exam: normal ENT inspection, pharynx normal, moist mucous membranes Neck Exam: normal inspection, non-tender, supple, full range of motion Respiratory Exam: normal breath sounds, lungs clear, No respiratory distress Cardiovascular Exam: regular rate/rhythm, normal heart sounds Gastrointestinal/Abdomen Exam: soft, No tenderness, No mass Male Genitalia Exam: deferred Rectal Exam: deferred Back Exam: normal inspection, normal range of motion, No CVA tenderness, No vertebral tenderness Extremity Exam: normal inspection, normal range of motion Skin Exam: normal color, warm, dry Wound Assessment: Skin/Wound Assessment Wound/Incision Assessment Start: 04/28/21 18:51 Text: Status: Active Freq: Q6H Protocol: Document 04/30/21 08:00 FELA (Rec: 04/30/21 10:17 [facility]EL[facility] [id number]) Wound/Incision Assessment Right Foot Wound Assessment Shift Assessment Wound Type SCABBED AREA ON STUMP Drainage Amount None Drainage Odor None/Absent Comment AMPUTATION Left Toe Wound Assessment Shift Assessment Wound Type SCABBED AREA Drainage Amount None Drainage Odor None/Absent General Appearance Open to air Final Diagnosis/Problem List - Final Discharge Diagnosis/Problem (1) Altered mental state Current Visit: Yes Status: Resolved Code(s): R41.82 - ALTERED MENTAL STATUS, UNSPECIFIED - Discharge Discharge Date: 04/30/21 Disposition: Home, Self-Care Condition: Stable Prescriptions: No Action Metoprolol Succinate 25 mg PO HS Furosemide 20 mg [Lasix 20 mg] 1 ea PO DAILY Donepezil HCl 1 tablet PO HS Ranolazine [Ranolazine ER] 500 mg PO BID Divalproex Sodium ER 250 mg [Depakote EXTENDED RELEASE 250 MG] 125 mg PO BID Lovastatin 40 mg PO DAILY Aspirin 81 mg PO DAILY Metoprolol Succinate 50 mg PO DAILY Follow up with: SALINA WALLIS MD [Primary Care Provider] -
[2021-04-30 13:19] VITALS: BP 142/77; PULSE 84; O2SAT 98
== END 2021-04-30 14:45 | disposition home or self-care (01) ==
LOC: ED 07:21 → MED SURG 17:24
PROVIDERS: ADMIT General Practice; ATTEND General Practice
DX: R41.82 Altered mental status, unspecified (principal); R19.7 Diarrhea, unspecified; E11.9 Type 2 diabetes mellitus without complications; Z99.81 Dependence on supplemental oxygen; D72.829 Elevated white blood cell count, unspecified; I10 Essential (primary) hypertension; Z79.899 Other long term (current) drug therapy; Z20.822 Contact with and (suspected) exposure to COVID-19
CPT/HCPCS: 36000; 36415; 70450; 71045; 74177; 80053; 80307; 81001; 82947; 83036; 83605; 83735; 84484; 85025; 87086; 93005; 93041; 93268; 94760; 96360; 96374; 99285; G0378; G0480; U0003; J1200; A9270-GY